=== PATIENT | male | born 1960 | race Two or more races ===

== ENCOUNTER 2016-12-05 21:28 | Inpatient (IN) | payer MEDICAID ==
[2016-12-04] MEDS: MIDAZOLAM DRIP 100 mg/100mL NS 100 ML IV SCH (21:50)
[~2016-12-05] VITALS: Ht 177.8 cm; Wt 174.0 kg
[2016-12-05] MEDS ORDERED: SUCCINYLCHOLINE CHLORIDE 20 MG/ML 10ML VIAL IV ONE (21:36)
[2016-12-05] MEDS ORDERED: MIDAZOLAM DRIP 100 mg/100mL NS 100 ML IV ONE (21:42)
[2016-12-05] MEDS: MIDAZOLAM DRIP 100 mg/100mL NS 100 ML IV SCH (21:50)
[2016-12-05] MEDS ORDERED: PROPOFOL 100 ML IV ONE (22:01)
[2016-12-05 22:15] VITALS: BP 73/58
[2016-12-05] MEDS ORDERED: SODIUM CHLORIDE 0.9% 1,000 ML IV ONE (22:45)
[2016-12-05] MEDS ORDERED: SODIUM CHLORIDE 0.9% 250 ML IV ONE (22:45)
[2016-12-05 23:03] LABS: Hematocrit 47.7 % (41.0-53.0); Mean Corpuscular Hemoglobin 30.6 pg (28.0-32.0); Mean Corpuscular Hgb Conc. 31.5 g/dL (32.0-36.0); Mean Corpuscular Volume 97.2 fL (80.0-100.0); Mean Platelet Volume 7.8 fL (7.4-10.4); Platelet Count (auto) 420 10^3/uL (140-450); Red Cell Distribution Width 15.6 % (11.6-16.0); SUSPECT VIEW TRANSMISSION; White Blood Cell 22.8 10^3/uL (4.4-10.8)
[2016-12-05] MEDS ORDERED: NOREPINEPHRINE BITARTRATE 250 ML IV ONE (23:12)
[2016-12-05 23:19] LABS: Myelocytes % 0; Promyelocytes % 0; Reactive Lymphocytes 0
[2016-12-05 23:22] LABS: Partial Thromboplastin Time 27.8 sec (22.64-33.71)
[2016-12-05 23:27] LABS: INR 1.39 (0.9-1.15); Prothrombin Time 14.3 sec (9.37-12.3)
[2016-12-05] MEDS ORDERED: NOREPINEPHRINE BITARTRATE 250 ML IV SCH (23:30)
[2016-12-05] MEDS ORDERED: ENOXAPARIN SOD 150 MG/1 ML SYRINGE SC ONE (23:30)
[2016-12-05 23:31] LABS: Metamyelocytes % 1
[2016-12-05 23:32] LABS: Platelet Estimate Adequate
[2016-12-06] VITALS (55 sets, daily range): BP systolic 99–136; BP diastolic 50–77
[2016-12-06 00:25] LABS: Lactic Acid w/Reflex 2.4 mmol/L (0.4-2.0)
[2016-12-06 00:37] LABS: BUN/Creatinine Ratio 18.6
[2016-12-06 00:38] LABS: Albumin 2.6 g/dL (3.4-5.0); Bilirubin, Total 1.7 mg/dL (0.2-1.0); Potassium 5.3 mmol/L (3.5-5.1); Total Protein 7.2 g/dL (6.4-8.2)
[2016-12-06 00:56] LABS: REFLEX LACTIC ACID YES OR NO YES
[2016-12-06] MEDS ORDERED: cefTRIAXone 1GM/50ML D5W 50 ML IV ONE ×2 (01:47→02:00)
[2016-12-06] MEDS ORDERED: SUCCINYLCHOLINE CHLORIDE 20 MG/ML 10ML VIAL IV ONE ×2 (02:45)
[2016-12-06] MEDS ORDERED: ACETAMINOPHEN 650 MG RECT SUPP PR ONE (02:45)
[2016-12-06] MEDS ORDERED: ETOMIDATE (2MG/ML) 20ML VIAL IV ONE (02:45)
[2016-12-06] MEDS ORDERED: ACETAMINOPHEN 650 mg PER 20 mL UD ONE (03:12)
[2016-12-06] MEDS ORDERED: ACETAMINOPHEN 650 mg PER 20 mL UD GT ONE ×2 (04:15→10:00)
[2016-12-06] MEDS ORDERED: PROPOFOL 100 ML IV SCH (04:15)
[2016-12-06] MEDS ORDERED: SODIUM CHLORIDE 0.9% 1,000 ML IV ONE ×3 (04:15→08:45)
[2016-12-06] MEDS: MIDAZOLAM DRIP 100 mg/100mL NS 100 ML IV SCH ×3 (04:36→23:49)
[2016-12-06 08:59] LABS: Albumin 1.7 g/dL (3.4-5.0); BUN/Creatinine Ratio 24.6; Potassium 3.5 mmol/L (3.5-5.1)
[2016-12-06 09:02] LABS: Bilirubin, Total 0.8 mg/dL (0.2-1.0); Total Protein 4.7 g/dL (6.4-8.2)
[2016-12-06 09:07] LABS: Basophils # (auto) 0 uL; Basophils % (auto) 0.3 % (0.0-2.0); Eosinophils # (auto) 0 uL; Eosinophils % (auto) 0.1 % (0.0-7.0); Hematocrit 34.9 % (41.0-53.0); Hemoglobin 11.1 g/dL (13.5-17.5); Lymphocytes # (auto) 1.9 uL; Lymphocytes % (auto) 10.6 % (10.0-50.0); Mean Corpuscular Hemoglobin 30.6 pg (28.0-32.0); Mean Corpuscular Hgb Conc. 31.7 g/dL (32.0-36.0); Mean Corpuscular Volume 96.5 fL (80.0-100.0); Mean Platelet Volume 7.8 fL (7.4-10.4); Monocytes # (auto) 0.8 uL; Monocytes % (auto) 4.6 % (0.0-12.0); Neutrophils # (auto) 15.5 uL; Neutrophils % (auto) 84.4 % (37.0-80.0); Platelet Count (auto) 360 10^3/uL (140-450); Red Cell Distribution Width 15.9 % (11.6-16.0); White Blood Cell 18.4 10^3/uL (4.4-10.8)
[2016-12-06 09:15] LABS: Calcium 5.3 mg/dL (8.5-10.1)
[2016-12-06 09:35] LABS: Urine Mucus FEW (None Seen); Urine RBC 1533 /hpf (0 - 3); Urine Squamous Epithelial Cell FEW /hpf (<5); Urine WBC Clumps PRESENT /hpf (None Seen)
[2016-12-06 09:42] LABS: Urine Blood 3+ /uL (Negative); Urine Color Amber (Yellow); Urine Glucose Normal (Normal); Urine Ketone 1+ (Negative); Urine Nitrite 1+ (Negative); Urine Urobilinogen 2 mg/dL (Negative); Urine pH 5.5 (5.0-8.0)
[2016-12-06] MEDS ORDERED: CALCIUM GLUC 4.65 MEQ/10ML IV ONE (09:44)
[2016-12-06 09:48] LABS: Urine Bilirubin Negative (Negative)
[2016-12-06] MEDS: PROPOFOL 100 ML IV SCH (09:59)
[2016-12-06] MEDS ORDERED: ACETAMINOPHEN 650 MG RECT SUPP PR PRN (10:00)
[2016-12-06] MEDS ORDERED: VANCOMYCIN PER PHARMACY 0 MG IV SCH (10:00)
[2016-12-06] MEDS ORDERED: DEXTROSE (50%) 50ML SYRG IV PRN (10:00)
[2016-12-06] MEDS ORDERED: FAMOTIDINE (10MG/ML) 2ML VL IV ONE (10:15)
[2016-12-06] MEDS ORDERED: ONDANSETRON HCL 4 MG/2 ML VIAL IV PRN (10:15)
[2016-12-06] MEDS ORDERED: NITROGLYCERIN 0.4 MG SL TAB SL PRN (10:15)
[2016-12-06] MEDS ORDERED: MORPHINE SULF INJ 2 MG/ML SYRINGE 1ML IV PRN ×2 (10:15)
[2016-12-06] MEDS ORDERED: CALCIUM GLUC 4.65 MEQ/10ML 4.65 MEQ in SODIUM CHL 0.9% 50 ML IV ONE (10:15)
[2016-12-06] MEDS ORDERED: ENOXAPARIN SOD 40 MG/0.4 ML SYRINGE SC SCH ×2 (10:17→22:00)
[2016-12-06] MEDS: NOREPINEPHRINE BITARTRATE 250 ML IV SCH ×2 (10:17→20:00)
[2016-12-06] MEDS: SODIUM CHLORIDE 0.9% 1,000 ML IV SCH ×2 (10:22→20:03)
[2016-12-06] MEDS: InsuLIN REG 1unit/0.01ml Soln (100units/ml) SC SCH ×2 (12:00→18:00)
[2016-12-06] MEDS: ACCU-CHEK COMFORT CURVE STRIP VI SCH ×2 (12:16→18:00)
[2016-12-06] MEDS: VANCOMYCIN 1,500 MG in D5W 5% 250 ML IV SCH ×2 (12:16→23:51)
[2016-12-06] MEDS: NYSTATIN TOPICAL CREAM 15GM TOP SCH ×2 (12:30→22:14)
[2016-12-06] MEDS ORDERED: ALB5IS NEB (13:32)
[2016-12-06] MEDS ORDERED: INSUINJ37 SUBCUT (13:32)
[2016-12-06] MEDS ORDERED: TRAV0.00 EACHEYE (13:32)
[2016-12-06] MEDS ORDERED: GLY5T PO (13:32)
[2016-12-06] MEDS ORDERED: BENA20TA4 PO (13:32)
[2016-12-06] MEDS ORDERED: NOR5T PO (13:32)
[2016-12-06] MEDS ORDERED: ASPirin 81 mg TAB PO ONE (16:00)
[2016-12-06 17:43] LABS: INR 1.43 (0.9-1.15); Prothrombin Time 14.7 sec (9.37-12.3)
[2016-12-06] MEDS ORDERED: NOREPINEPHRINE BITARTRATE 250 ML IV ONE (18:36)
[2016-12-06] MEDS: HEPARIN DRIP/D5W 100UNITS/ML 250 ML IV SCH (18:52)
[2016-12-06 20:43] LABS: BUN/Creatinine Ratio 24.8; Calcium 7.9 mg/dL (8.5-10.1); Potassium 4.2 mmol/L (3.5-5.1)
[2016-12-06] MEDS: FAMOTIDINE (10MG/ML) 2ML VL IV SCH (22:05)
[2016-12-07] VITALS (90 sets, daily range): BP systolic 97–151; BP diastolic 46–103
[2016-12-07] MEDS: ACCU-CHEK COMFORT CURVE STRIP VI SCH ×5 (00:06→23:57)
[2016-12-07] MEDS: PROPOFOL 100 ML IV SCH ×3 (00:07→21:56)
[2016-12-07 01:44] LABS: Partial Thromboplastin Time 45.5 sec (22.64-33.71)
[2016-12-07 03:01] LABS: INR 1.49 (0.9-1.15); Prothrombin Time 15.3 sec (9.37-12.3)
[2016-12-07] MEDS: InsuLIN REG 1unit/0.01ml Soln (100units/ml) SC SCH ×5 (05:54→23:57)
[2016-12-07] MEDS: HEPARIN DRIP/D5W 100UNITS/ML 250 ML IV SCH ×2 (06:49→16:59)
[2016-12-07] MEDS: MIDAZOLAM DRIP 100 mg/100mL NS 100 ML IV SCH ×3 (06:49→20:13)
[2016-12-07 06:54] LABS: Basophils # (auto) 0.1 uL; Basophils % (auto) 0.5 % (0.0-2.0); Eosinophils # (auto) 0.2 uL; Eosinophils % (auto) 0.9 % (0.0-7.0); Hematocrit 45.2 % (41.0-53.0); Hemoglobin 14.6 g/dL (13.5-17.5); Lymphocytes # (auto) 2.4 uL; Lymphocytes % (auto) 10.9 % (10.0-50.0); Mean Corpuscular Hgb Conc. 32.3 g/dL (32.0-36.0); Mean Corpuscular Volume 95.9 fL (80.0-100.0); Mean Platelet Volume 7.7 fL (7.4-10.4); Monocytes # (auto) 1.1 uL; Neutrophils # (auto) 18.4 uL; Neutrophils % (auto) 82.7 % (37.0-80.0); Platelet Count (auto) 394 10^3/uL (140-450); Red Cell Distribution Width 15.5 % (11.6-16.0); White Blood Cell 22.2 10^3/uL (4.4-10.8)
[2016-12-07 07:09] LABS: Partial Thromboplastin Time 42.2 sec (22.64-33.71)
[2016-12-07 07:20] LABS: INR 1.45 (0.9-1.15); Prothrombin Time 14.9 sec (9.37-12.3)
[2016-12-07 08:09] LABS: Albumin 2.3 g/dL (3.4-5.0); BUN/Creatinine Ratio 20.3; Calcium 7.8 mg/dL (8.5-10.1)
[2016-12-07 08:25] LABS: Bilirubin, Total 1.6 mg/dL (0.2-1.0); Total Protein 6.8 g/dL (6.4-8.2)
[2016-12-07] MEDS: FAMOTIDINE (10MG/ML) 2ML VL IV SCH (11:08)
[2016-12-07] MEDS: cefTRIAXone 1GM/50ML D5W 50 ML IV SCH (11:08)
[2016-12-07] MEDS: VANCOMYCIN 1,500 MG in D5W 5% 250 ML IV SCH (11:09)
[2016-12-07] MEDS: ASPirin 81 mg TAB PO SCH (11:09)
[2016-12-07] MEDS: SODIUM CHLORIDE 0.9% 1,000 ML IV SCH ×3 (11:10→22:00)
[2016-12-07] MEDS: NYSTATIN TOPICAL CREAM 15GM TOP SCH ×2 (11:11→21:57)
[2016-12-07 14:03] LABS: INR 1.47 (0.9-1.15); Prothrombin Time 15.1 sec (9.37-12.3)
[2016-12-07 18:09] LABS: Amylase 64 U/L (25-115)
[2016-12-07] MEDS: LINEZOLID 600MG/300ML 300 ML IV SCH (18:28)
[2016-12-07] MEDS ORDERED: PANTOPRAZOLE SODIUM 40 MG/10 ML VIAL IV ONE (18:45)
[2016-12-07 21:20] LABS: Partial Thromboplastin Time 63.6 sec (22.64-33.71)
[2016-12-07 21:26] LABS: INR 1.43 (0.9-1.15); Prothrombin Time 14.7 sec (9.37-12.3)
[2016-12-07 21:31] LABS: B-Type Natriuretic Peptide 71.23 pg/mL (0-100)
[2016-12-07 22:03] LABS: Temperature: 22.9 C (20.0-25.0)
[2016-12-07] MEDS: NOREPINEPHRINE BITARTRATE 250 ML IV SCH (23:52)
[2016-12-08] VITALS (102 sets, daily range): BP systolic 94–143; BP diastolic 46–96
[2016-12-08] MEDS: MIDAZOLAM DRIP 100 mg/100mL NS 100 ML IV SCH ×2 (01:44→09:03)
[2016-12-08] MEDS: HEPARIN DRIP/D5W 100UNITS/ML 250 ML IV SCH ×3 (01:47→17:29)
[2016-12-08] MEDS: LINEZOLID 600MG/300ML 300 ML IV SCH ×2 (05:00→18:00)
[2016-12-08] MEDS: InsuLIN REG 1unit/0.01ml Soln (100units/ml) SC SCH ×3 (06:00→17:52)
[2016-12-08] MEDS: PROPOFOL 100 ML IV SCH ×3 (06:07→21:00)
[2016-12-08] MEDS: ACCU-CHEK COMFORT CURVE STRIP VI SCH ×3 (06:08→17:52)
[2016-12-08 08:12] LABS: Basophils # (auto) 0.1 uL; Basophils % (auto) 0.8 % (0.0-2.0); Eosinophils # (auto) 0.4 uL; Eosinophils % (auto) 1.8 % (0.0-7.0); Hematocrit 43.8 % (41.0-53.0); Lymphocytes # (auto) 1.8 uL; Lymphocytes % (auto) 9.2 % (10.0-50.0); Mean Corpuscular Hemoglobin 30.6 pg (28.0-32.0); Mean Corpuscular Hgb Conc. 31.9 g/dL (32.0-36.0); Mean Platelet Volume 7.7 fL (7.4-10.4); Monocytes # (auto) 0.9 uL; Monocytes % (auto) 4.7 % (0.0-12.0); Neutrophils # (auto) 15.8 uL; Neutrophils % (auto) 83.5 % (37.0-80.0); Platelet Count (auto) 376 10^3/uL (140-450); Red Cell Distribution Width 15.9 % (11.6-16.0)
[2016-12-08 08:20] LABS: Calcium 7.8 mg/dL (8.5-10.1); Potassium 4.1 mmol/L (3.5-5.1)
[2016-12-08] MEDS: SODIUM CHLORIDE 0.9% 1,000 ML IV SCH ×3 (09:00→22:24)
[2016-12-08 09:33] LABS: Partial Thromboplastin Time 68.8 sec (22.64-33.71)
[2016-12-08 09:47] LABS: INR 1.38 (0.9-1.15); Prothrombin Time 14.2 sec (9.37-12.3)
[2016-12-08] MEDS: PANTOPRAZOLE SODIUM 40 MG/10 ML VIAL IV SCH (09:59)
[2016-12-08] MEDS: cefTRIAXone 1GM/50ML D5W 50 ML IV SCH (09:59)
[2016-12-08] MEDS: NYSTATIN TOPICAL CREAM 15GM TOP SCH ×2 (10:00→22:23)
[2016-12-08] MEDS: ASPirin 81 mg TAB PO SCH (10:00)
[2016-12-08 19:25] LABS: Partial Thromboplastin Time 64.7 sec (22.64-33.71)
[2016-12-08 20:03] LABS: INR 1.3 (0.9-1.15); Prothrombin Time 13.4 sec (9.37-12.3)
[2016-12-09] VITALS (96 sets, daily range): BP systolic 84–140; BP diastolic 47–92
[2016-12-09] MEDS: ACCU-CHEK COMFORT CURVE STRIP VI SCH ×4 (00:15→17:21)
[2016-12-09] MEDS: PROPOFOL 100 ML IV SCH (01:38)
[2016-12-09] MEDS: HEPARIN DRIP/D5W 100UNITS/ML 250 ML IV SCH ×3 (03:06→22:20)
[2016-12-09 04:03] LABS: Basophils # (auto) 0.1 uL; Basophils % (auto) 0.4 % (0.0-2.0); Eosinophils # (auto) 0.4 uL; Eosinophils % (auto) 2.8 % (0.0-7.0); Hematocrit 41.5 % (41.0-53.0); Hemoglobin 13.2 g/dL (13.5-17.5); Lymphocytes # (auto) 1.5 uL; Lymphocytes % (auto) 10.1 % (10.0-50.0); Mean Corpuscular Hemoglobin 30.8 pg (28.0-32.0); Mean Corpuscular Hgb Conc. 31.8 g/dL (32.0-36.0); Mean Corpuscular Volume 96.8 fL (80.0-100.0); Mean Platelet Volume 7.8 fL (7.4-10.4); Monocytes # (auto) 0.7 uL; Monocytes % (auto) 4.8 % (0.0-12.0); Neutrophils # (auto) 11.9 uL; Neutrophils % (auto) 81.9 % (37.0-80.0); Platelet Count (auto) 352 10^3/uL (140-450); Red Cell Distribution Width 16.1 % (11.6-16.0); White Blood Cell 14.5 10^3/uL (4.4-10.8)
[2016-12-09 04:13] LABS: Partial Thromboplastin Time 32.1 sec (22.64-33.71)
[2016-12-09 04:21] LABS: INR 1.27 (0.9-1.15); Prothrombin Time 13.1 sec (9.37-12.3)
[2016-12-09 04:27] LABS: Potassium 3.8 mmol/L (3.5-5.1)
[2016-12-09] MEDS: LINEZOLID 600MG/300ML 300 ML IV SCH ×2 (04:36→17:21)
[2016-12-09 04:41] LABS: BUN/Creatinine Ratio 12.2; Bilirubin, Total 1.1 mg/dL (0.2-1.0); Calcium 7.9 mg/dL (8.5-10.1); Total Protein 6.4 g/dL (6.4-8.2)
[2016-12-09] MEDS: InsuLIN REG 1unit/0.01ml Soln (100units/ml) SC SCH ×4 (06:00→17:21)
[2016-12-09] MEDS: NOREPINEPHRINE BITARTRATE 250 ML IV SCH (10:00)
[2016-12-09] MEDS: PANTOPRAZOLE SODIUM 40 MG/10 ML VIAL IV SCH (10:04)
[2016-12-09] MEDS: NYSTATIN TOPICAL CREAM 15GM TOP SCH ×2 (10:05→22:21)
[2016-12-09] MEDS: cefTRIAXone 1GM/50ML D5W 50 ML IV SCH (10:05)
[2016-12-09] MEDS: ASPirin 81 mg TAB PO SCH (10:05)
[2016-12-09] MEDS: SODIUM CHLORIDE 0.9% 1,000 ML IV SCH ×3 (10:05→23:52)
[2016-12-09] MEDS: LORazepam 2MG/ML-1ML VIAL IV PRN ×3 (11:49→18:48)
[2016-12-09] MEDS ORDERED: LIDOCAINE 1% HCL (LOCAL ANESTH.) INJ 20ML MDV ID ONE (14:30)
[2016-12-09] MEDS: Diabetisource AC 1 Liter GT SCH (16:30)
[2016-12-09] MEDS: SODIUM CHLOR 0.9% PF (SALINE LOCK) 10ML VIAL IV SCH (22:21)
[2016-12-10] VITALS (95 sets, daily range): BP systolic 72–141; BP diastolic 36–96
[2016-12-10] MEDS: ACCU-CHEK COMFORT CURVE STRIP VI SCH ×4 (00:09→17:40)
[2016-12-10 05:00] LABS: Basophils # (auto) 0 uL; Basophils % (auto) 0.4 % (0.0-2.0); Eosinophils # (auto) 0.4 uL; Eosinophils % (auto) 3.3 % (0.0-7.0); Hematocrit 41.5 % (41.0-53.0); Hemoglobin 13.1 g/dL (13.5-17.5); Lymphocytes # (auto) 1.7 uL; Lymphocytes % (auto) 14.6 % (10.0-50.0); Mean Corpuscular Hemoglobin 30.2 pg (28.0-32.0); Mean Corpuscular Hgb Conc. 31.6 g/dL (32.0-36.0); Mean Corpuscular Volume 95.5 fL (80.0-100.0); Mean Platelet Volume 7.6 fL (7.4-10.4); Monocytes % (auto) 8.9 % (0.0-12.0); Neutrophils # (auto) 8.5 uL; Neutrophils % (auto) 72.8 % (37.0-80.0); Platelet Count (auto) 316 10^3/uL (140-450); Red Cell Distribution Width 16.5 % (11.6-16.0); White Blood Cell 11.7 10^3/uL (4.4-10.8)
[2016-12-10] MEDS: LINEZOLID 600MG/300ML 300 ML IV SCH ×2 (05:04→16:39)
[2016-12-10 05:25] LABS: BUN/Creatinine Ratio 9.5; Calcium 8.1 mg/dL (8.5-10.1); Potassium 4.9 mmol/L (3.5-5.1)
[2016-12-10] MEDS: InsuLIN REG 1unit/0.01ml Soln (100units/ml) SC SCH ×3 (06:00→12:00)
[2016-12-10] MEDS ORDERED: ALBUMIN 5% 250 ML IV ONE ×2 (07:45→08:30)
[2016-12-10] MEDS: HEPARIN DRIP/D5W 100UNITS/ML 250 ML IV SCH ×2 (07:54→17:34)
[2016-12-10] MEDS: cefTRIAXone 1GM/50ML D5W 50 ML IV SCH (08:33)
[2016-12-10] MEDS: SODIUM CHLOR 0.9% PF (SALINE LOCK) 10ML VIAL IV SCH ×2 (10:15→22:13)
[2016-12-10] MEDS: PANTOPRAZOLE SODIUM 40 MG/10 ML VIAL IV SCH (10:15)
[2016-12-10] MEDS: NOREPINEPHRINE BITARTRATE 250 ML IV SCH (10:15)
[2016-12-10] MEDS: NYSTATIN TOPICAL CREAM 15GM TOP SCH ×2 (10:16→22:13)
[2016-12-10] MEDS: ASPirin 81 mg TAB PO SCH (10:16)
[2016-12-10] MEDS: SODIUM CHLORIDE 0.9% 1,000 ML IV SCH ×2 (13:45→22:59)
[2016-12-10] MEDS: Diabetisource AC 1 Liter GT SCH (20:00)
[2016-12-10] MEDS: LORazepam 2MG/ML-1ML VIAL IV PRN (23:07)
[2016-12-11] VITALS (101 sets, daily range): BP systolic 69–135; BP diastolic 33–88
[2016-12-11] MEDS: LORazepam 2MG/ML-1ML VIAL IV PRN ×4 (00:10→19:16)
[2016-12-11] MEDS: ACCU-CHEK COMFORT CURVE STRIP VI SCH ×4 (00:11→18:14)
[2016-12-11] MEDS: LINEZOLID 600MG/300ML 300 ML IV SCH ×2 (05:33→16:19)
[2016-12-11] MEDS: HEPARIN DRIP/D5W 100UNITS/ML 250 ML IV SCH ×3 (05:33→22:25)
[2016-12-11] MEDS: InsuLIN REG 1unit/0.01ml Soln (100units/ml) SC SCH ×4 (05:53→18:00)
[2016-12-11 06:11] LABS: Basophils # (auto) 0 uL; Basophils % (auto) 0.1 % (0.0-2.0); Eosinophils # (auto) 0.3 uL; Eosinophils % (auto) 3.1 % (0.0-7.0); Hematocrit 40.4 % (41.0-53.0); Hemoglobin 12.8 g/dL (13.5-17.5); Lymphocytes # (auto) 1.1 uL; Lymphocytes % (auto) 10.2 % (10.0-50.0); Mean Corpuscular Hemoglobin 29.9 pg (28.0-32.0); Mean Corpuscular Hgb Conc. 31.6 g/dL (32.0-36.0); Mean Corpuscular Volume 94.6 fL (80.0-100.0); Mean Platelet Volume 7.4 fL (7.4-10.4); Monocytes # (auto) 0.9 uL; Monocytes % (auto) 8.8 % (0.0-12.0); Neutrophils # (auto) 8.3 uL; Neutrophils % (auto) 77.8 % (37.0-80.0); Platelet Count (auto) 322 10^3/uL (140-450); Red Cell Distribution Width 16.1 % (11.6-16.0); White Blood Cell 10.7 10^3/uL (4.4-10.8)
[2016-12-11 06:39] LABS: Albumin 2.4 g/dL (3.4-5.0); BUN/Creatinine Ratio 8.5; Calcium 8.3 mg/dL (8.5-10.1); Potassium 4.7 mmol/L (3.5-5.1)
[2016-12-11 06:42] LABS: Bilirubin, Total 0.9 mg/dL (0.2-1.0); Total Protein 6.9 g/dL (6.4-8.2)
[2016-12-11] MEDS: cefTRIAXone 1GM/50ML D5W 50 ML IV SCH (09:39)
[2016-12-11] MEDS: SODIUM CHLOR 0.9% PF (SALINE LOCK) 10ML VIAL IV SCH ×2 (09:40→22:00)
[2016-12-11] MEDS: ASPirin 81 mg TAB PO SCH (09:40)
[2016-12-11] MEDS: NYSTATIN TOPICAL CREAM 15GM TOP SCH ×2 (09:40→22:00)
[2016-12-11] MEDS: PANTOPRAZOLE SODIUM 40 MG/10 ML VIAL IV SCH (09:40)
[2016-12-11] MEDS: NOREPINEPHRINE BITARTRATE 250 ML IV SCH (10:00)
[2016-12-11] MEDS: SODIUM CHLORIDE 0.9% 1,000 ML IV SCH (10:03)
[2016-12-11] MEDS ORDERED: BISACODYL 10 MG RECT SUPP PR ONE ×2 (12:30→18:30)
[2016-12-11] MEDS ORDERED: FUROSEMIDE 40 MG/4 ML VIAL IV ONE (12:30)
[2016-12-11] MEDS ORDERED: FUROSEMIDE 20 MG/2 ML VIAL IV ONE (15:30)
[2016-12-11] MEDS ORDERED: BENAZEPRIL HCL 10 MG TAB PO ONE (15:30)
[2016-12-11] MEDS: METOPROLOL TARTRATE 1MG/1ML-5ML VIAL IV SCH (17:55)
[2016-12-11] MEDS: fentaNYL Drip 2500mCg/250mlNS 250 ML IV SCH (19:58)
[2016-12-12] VITALS (99 sets, daily range): BP systolic 94–158; BP diastolic 53–98
[2016-12-12] MEDS ORDERED: FUROSEMIDE 40 MG/4 ML VIAL IV ONE (01:00)
[2016-12-12] MEDS: ACCU-CHEK COMFORT CURVE STRIP VI SCH ×4 (01:04→17:45)
[2016-12-12] MEDS: InsuLIN REG 1unit/0.01ml Soln (100units/ml) SC SCH ×4 (01:04→17:45)
[2016-12-12] MEDS: SODIUM CHLORIDE 0.9% 1,000 ML IV SCH ×3 (01:06→16:03)
[2016-12-12 03:52] LABS: Basophils # (auto) 0 uL; Basophils % (auto) 0.4 % (0.0-2.0); Eosinophils # (auto) 0.4 uL; Eosinophils % (auto) 3.5 % (0.0-7.0); Hemoglobin 12.7 g/dL (13.5-17.5); Lymphocytes # (auto) 1.4 uL; Lymphocytes % (auto) 11.8 % (10.0-50.0); Mean Corpuscular Hemoglobin 30.4 pg (28.0-32.0); Mean Corpuscular Hgb Conc. 31.9 g/dL (32.0-36.0); Mean Corpuscular Volume 95.4 fL (80.0-100.0); Mean Platelet Volume 7.7 fL (7.4-10.4); Monocytes # (auto) 0.7 uL; Monocytes % (auto) 6.1 % (0.0-12.0); Neutrophils % (auto) 78.2 % (37.0-80.0); Platelet Count (auto) 390 10^3/uL (140-450); Red Cell Distribution Width 16.3 % (11.6-16.0); White Blood Cell 11.6 10^3/uL (4.4-10.8)
[2016-12-12 04:04] LABS: BUN/Creatinine Ratio 12.2; Calcium 8.8 mg/dL (8.5-10.1); Potassium 4.3 mmol/L (3.5-5.1)
[2016-12-12] MEDS: LINEZOLID 600MG/300ML 300 ML IV SCH ×2 (04:50→17:07)
[2016-12-12] MEDS: METOPROLOL TARTRATE 1MG/1ML-5ML VIAL IV SCH ×4 (06:00→17:45)
[2016-12-12] MEDS: HEPARIN DRIP/D5W 100UNITS/ML 250 ML IV SCH ×2 (08:02→17:39)
[2016-12-12] MEDS: NOREPINEPHRINE BITARTRATE 250 ML IV SCH ×2 (10:00→18:53)
[2016-12-12] MEDS: SODIUM CHLOR 0.9% PF (SALINE LOCK) 10ML VIAL IV SCH ×2 (10:43→21:43)
[2016-12-12] MEDS: PANTOPRAZOLE SODIUM 40 MG/10 ML VIAL IV SCH (10:43)
[2016-12-12] MEDS: cefTRIAXone 1GM/50ML D5W 50 ML IV SCH (10:43)
[2016-12-12] MEDS: ASPirin 81 mg TAB PO SCH (10:43)
[2016-12-12] MEDS: NYSTATIN TOPICAL CREAM 15GM TOP SCH ×2 (10:44→21:44)
[2016-12-12] MEDS ORDERED: FUROSEMIDE 20 MG/2 ML VIAL IV ONE (13:30)
[2016-12-12] MEDS: LORazepam 2MG/ML-1ML VIAL IV PRN ×2 (19:17→23:20)
[2016-12-12] MEDS ORDERED: EPINEPHrine HCL 0.5 ML NEB ONE (19:50)
[2016-12-12] MEDS ORDERED: EPINEPHrine HCL 0.5 ML NEB NEB ONE (20:00)
[2016-12-12] MEDS: fentaNYL Drip 2500mCg/250mlNS 250 ML IV SCH (20:00)
[2016-12-13] VITALS (68 sets, daily range): BP systolic 110–202; BP diastolic 41–116
[2016-12-13] MEDS: METOPROLOL TARTRATE 1MG/1ML-5ML VIAL IV SCH ×4 (00:18→18:00)
[2016-12-13] MEDS: ACCU-CHEK COMFORT CURVE STRIP VI SCH ×4 (00:18→18:00)
[2016-12-13] MEDS: LORazepam 2MG/ML-1ML VIAL IV PRN ×4 (02:55→23:15)
[2016-12-13] MEDS: HEPARIN DRIP/D5W 100UNITS/ML 250 ML IV SCH (03:16)
[2016-12-13] MEDS: LINEZOLID 600MG/300ML 300 ML IV SCH ×2 (04:33→17:44)
[2016-12-13] MEDS: InsuLIN REG 1unit/0.01ml Soln (100units/ml) SC SCH ×4 (06:00→18:00)
[2016-12-13 06:44] LABS: Basophils # (auto) 0 uL; Basophils % (auto) 0.2 % (0.0-2.0); Eosinophils # (auto) 0.5 uL; Eosinophils % (auto) 3.2 % (0.0-7.0); Hematocrit 40.6 % (41.0-53.0); Hemoglobin 12.9 g/dL (13.5-17.5); Lymphocytes # (auto) 1.2 uL; Lymphocytes % (auto) 8.5 % (10.0-50.0); Mean Corpuscular Hemoglobin 30.2 pg (28.0-32.0); Mean Corpuscular Hgb Conc. 31.8 g/dL (32.0-36.0); Mean Corpuscular Volume 94.8 fL (80.0-100.0); Mean Platelet Volume 7.7 fL (7.4-10.4); Monocytes % (auto) 6.8 % (0.0-12.0); Neutrophils # (auto) 11.7 uL; Neutrophils % (auto) 81.3 % (37.0-80.0); Platelet Count (auto) 401 10^3/uL (140-450); Red Cell Distribution Width 16.1 % (11.6-16.0); White Blood Cell 14.3 10^3/uL (4.4-10.8)
[2016-12-13 07:05] LABS: BUN/Creatinine Ratio 14.7; Calcium 8.4 mg/dL (8.5-10.1); Potassium 4.7 mmol/L (3.5-5.1)
[2016-12-13] MEDS: cefTRIAXone 1GM/50ML D5W 50 ML IV SCH (08:38)
[2016-12-13] MEDS: NYSTATIN TOPICAL CREAM 15GM TOP SCH ×2 (09:30→23:11)
[2016-12-13] MEDS: ASPirin 81 mg TAB PO SCH (09:30)
[2016-12-13] MEDS: SODIUM CHLOR 0.9% PF (SALINE LOCK) 10ML VIAL IV SCH ×2 (09:30→22:00)
[2016-12-13] MEDS: PANTOPRAZOLE SODIUM 40 MG/10 ML VIAL IV SCH (09:30)
[2016-12-13] MEDS: ARMODAFINIL 150 MG TAB PO SCH (12:45)
[2016-12-14] VITALS (33 sets, daily range): BP systolic 108–182; BP diastolic 42–106
[2016-12-14] MEDS: LINEZOLID 600MG/300ML 300 ML IV SCH ×2 (05:17→16:44)
[2016-12-14] MEDS: InsuLIN REG 1unit/0.01ml Soln (100units/ml) SC SCH ×4 (05:18→17:57)
[2016-12-14] MEDS: ACCU-CHEK COMFORT CURVE STRIP VI SCH ×4 (05:21→17:57)
[2016-12-14 05:37] LABS: Basophils # (auto) 0.1 uL; Basophils % (auto) 0.4 % (0.0-2.0); Eosinophils # (auto) 0.3 uL; Hematocrit 39.4 % (41.0-53.0); Hemoglobin 12.7 g/dL (13.5-17.5); Lymphocytes # (auto) 1.2 uL; Mean Corpuscular Hemoglobin 30.5 pg (28.0-32.0); Mean Corpuscular Hgb Conc. 32.3 g/dL (32.0-36.0); Mean Corpuscular Volume 94.4 fL (80.0-100.0); Mean Platelet Volume 7.4 fL (7.4-10.4); Monocytes # (auto) 0.7 uL; Monocytes % (auto) 5.2 % (0.0-12.0); Neutrophils # (auto) 11.1 uL; Neutrophils % (auto) 83.4 % (37.0-80.0); Platelet Count (auto) 381 10^3/uL (140-450); Red Cell Distribution Width 15.9 % (11.6-16.0); White Blood Cell 13.3 10^3/uL (4.4-10.8)
[2016-12-14] MEDS: METOPROLOL TARTRATE 1MG/1ML-5ML VIAL IV SCH ×2 (05:39)
[2016-12-14 05:58] LABS: Albumin 2.4 g/dL (3.4-5.0); Calcium 8.8 mg/dL (8.5-10.1); Magnesium 1.8 mg/dL (1.6-2.6); Potassium 5.2 mmol/L (3.5-5.1); Total Protein 7.1 g/dL (6.4-8.2)
[2016-12-14 07:30] LABS: Bilirubin, Direct 0.2 mg/dL (0-0.2)
[2016-12-14] MEDS: ARMODAFINIL 150 MG TAB PO SCH (08:22)
[2016-12-14] MEDS: cefTRIAXone 1GM/50ML D5W 50 ML IV SCH (08:39)
[2016-12-14] MEDS ORDERED: MAGNESIUM SULFATE 1GM/100ML 100 ML IV ONE (09:30)
[2016-12-14] MEDS: METOPROLOL TARTRATE 25 MG TAB PO SCH ×2 (09:38→22:00)
[2016-12-14] MEDS: NYSTATIN TOPICAL CREAM 15GM TOP SCH ×2 (09:39→21:51)
[2016-12-14] MEDS: PANTOPRAZOLE SODIUM 40 MG/10 ML VIAL IV SCH (09:39)
[2016-12-14] MEDS: ASPirin 81 mg TAB PO SCH (09:39)
[2016-12-14] MEDS ORDERED: NUVIGIL 150 MG PO SCH (10:00)
[2016-12-14] MEDS: SODIUM CHLOR 0.9% PF (SALINE LOCK) 10ML VIAL IV SCH ×2 (10:00→22:00)
[2016-12-14] MEDS: MORPHINE SULF INJ 2 MG/ML SYRINGE 1ML IV PRN ×2 (17:50→21:51)
[2016-12-15] VITALS (24 sets, daily range): BP systolic 138–165; BP diastolic 75–109
[2016-12-15 03:51] LABS: Basophils # (auto) 0.3 uL; Basophils % (auto) 2.1 % (0.0-2.0); Eosinophils # (auto) 0.2 uL; Eosinophils % (auto) 1.9 % (0.0-7.0); Hematocrit 38.7 % (41.0-53.0); Hemoglobin 12.4 g/dL (13.5-17.5); Lymphocytes # (auto) 1.2 uL; Lymphocytes % (auto) 9.8 % (10.0-50.0); Mean Corpuscular Hemoglobin 30.3 pg (28.0-32.0); Mean Corpuscular Hgb Conc. 32.1 g/dL (32.0-36.0); Mean Corpuscular Volume 94.5 fL (80.0-100.0); Mean Platelet Volume 7.6 fL (7.4-10.4); Monocytes # (auto) 1.1 uL; Monocytes % (auto) 8.6 % (0.0-12.0); Neutrophils # (auto) 9.7 uL; Neutrophils % (auto) 77.6 % (37.0-80.0); Platelet Count (auto) 423 10^3/uL (140-450); White Blood Cell 12.4 10^3/uL (4.4-10.8)
[2016-12-15 04:10] LABS: Albumin 2.4 g/dL (3.4-5.0); Calcium 8.5 mg/dL (8.5-10.1); Magnesium 1.9 mg/dL (1.6-2.6); Potassium 4.5 mmol/L (3.5-5.1)
[2016-12-15 04:13] LABS: Total Protein 7.4 g/dL (6.4-8.2)
[2016-12-15] MEDS: LINEZOLID 600MG/300ML 300 ML IV SCH (05:00)
[2016-12-15] MEDS: InsuLIN REG 1unit/0.01ml Soln (100units/ml) SC SCH ×5 (06:00→23:32)
[2016-12-15] MEDS: ACCU-CHEK COMFORT CURVE STRIP VI SCH ×5 (06:08→23:32)
[2016-12-15] MEDS: SODIUM CHLOR 0.9% PF (SALINE LOCK) 10ML VIAL IV SCH ×2 (09:16→21:54)
[2016-12-15] MEDS: ARMODAFINIL 150 MG TAB PO SCH (09:17)
[2016-12-15] MEDS: cefTRIAXone 1GM/50ML D5W 50 ML IV SCH (09:17)
[2016-12-15] MEDS: PANTOPRAZOLE SODIUM 40 MG/10 ML VIAL IV SCH (09:28)
[2016-12-15] MEDS: METOPROLOL TARTRATE 25 MG TAB PO SCH (09:29)
[2016-12-15] MEDS: ASPirin 81 mg TAB PO SCH (09:29)
[2016-12-15] MEDS: NYSTATIN TOPICAL CREAM 15GM TOP SCH ×2 (09:29→21:56)
[2016-12-15 11:03] LABS: Hepatitis B Surface Antibody Negative
[2016-12-15] MEDS ORDERED: METOPROLOL TARTRATE 25 MG TAB PO ONE (11:30)
[2016-12-15] MEDS: LEVOFLOXACIN 500 MG TAB PO SCH (11:34)
[2016-12-15] MEDS: METOPROLOL TARTRATE 50 MG TAB PO SCH (21:55)
[2016-12-16 05:23] VITALS: BP 150/84
[2016-12-16] MEDS: ACCU-CHEK COMFORT CURVE STRIP VI SCH ×4 (05:31→23:58)
[2016-12-16] MEDS: InsuLIN REG 1unit/0.01ml Soln (100units/ml) SC SCH ×4 (05:31→23:58)
[2016-12-16] MEDS: ARMODAFINIL 150 MG TAB PO SCH (08:24)
[2016-12-16 09:00] VITALS: BP 147/87
[2016-12-16] MEDS: LEVOFLOXACIN 500 MG TAB PO SCH (09:44)
[2016-12-16] MEDS: ASPirin 81 mg TAB PO SCH (09:44)
[2016-12-16] MEDS: PANTOPRAZOLE SODIUM 40 MG/10 ML VIAL IV SCH (09:44)
[2016-12-16] MEDS: METOPROLOL TARTRATE 50 MG TAB PO SCH ×2 (09:46→21:46)
[2016-12-16] MEDS: SODIUM CHLOR 0.9% PF (SALINE LOCK) 10ML VIAL IV SCH ×2 (09:46→21:47)
[2016-12-16] MEDS: NYSTATIN TOPICAL CREAM 15GM TOP SCH ×2 (10:33→21:46)
[2016-12-16] MEDS ORDERED: MAGNESIUM SULFATE 1GM/100ML 100 ML IV ONE (12:45)
[2016-12-16] MEDS ORDERED: BENAZEPRIL HCL 10 MG TAB PO ONE (12:45)
[2016-12-16 13:00] VITALS: BP 154/89
[2016-12-16 17:00] VITALS: BP 124/82
[2016-12-16 22:19] VITALS: BP 151/86
[2016-12-17 05:02] VITALS: BP 124/73
[2016-12-17] MEDS: InsuLIN REG 1unit/0.01ml Soln (100units/ml) SC SCH ×4 (05:44→23:59)
[2016-12-17] MEDS: ACCU-CHEK COMFORT CURVE STRIP VI SCH ×4 (05:44→23:58)
[2016-12-17 05:50] LABS: Partial Thromboplastin Time 34.3 sec (22.64-33.71)
[2016-12-17 05:54] LABS: INR 1.32 (0.9-1.15); Prothrombin Time 13.6 sec (9.37-12.3)
[2016-12-17] MEDS ORDERED: ceFAZolin 1GM/50ML D5W 50 ML IV ONE (07:02)
[2016-12-17] MEDS: ARMODAFINIL 150 MG TAB PO SCH (08:47)
[2016-12-17 09:00] VITALS: BP 125/63
[2016-12-17] MEDS: PANTOPRAZOLE 40 MG TAB PO SCH (09:44)
[2016-12-17] MEDS: LEVOFLOXACIN 500 MG TAB PO SCH (09:44)
[2016-12-17] MEDS: SODIUM CHLOR 0.9% PF (SALINE LOCK) 10ML VIAL IV SCH ×2 (09:44→23:58)
[2016-12-17] MEDS: BENAZEPRIL HCL 10 MG TAB PO SCH (09:45)
[2016-12-17] MEDS: METOPROLOL TARTRATE 50 MG TAB PO SCH ×2 (09:45→22:14)
[2016-12-17] MEDS: ASPirin 81 mg TAB PO SCH (09:45)
[2016-12-17] MEDS: NYSTATIN TOPICAL CREAM 15GM TOP SCH ×2 (12:08→22:14)
[2016-12-17 13:00] VITALS: BP 104/70
[2016-12-17 16:56] VITALS: BP 141/79
[2016-12-17 21:44] VITALS: BP 155/84
[2016-12-18 04:48] VITALS: BP 150/84
[2016-12-18] MEDS: InsuLIN REG 1unit/0.01ml Soln (100units/ml) SC SCH ×3 (05:29→18:00)
[2016-12-18] MEDS: ACCU-CHEK COMFORT CURVE STRIP VI SCH ×3 (05:30→18:09)
[2016-12-18 06:13] LABS: BUN/Creatinine Ratio 19.7; Calcium 8.7 mg/dL (8.5-10.1); Magnesium 1.9 mg/dL (1.6-2.6)
[2016-12-18 06:18] LABS: Basophils # (auto) 0.2 uL; Basophils % (auto) 1.5 % (0.0-2.0); Eosinophils # (auto) 0.3 uL; Eosinophils % (auto) 2.6 % (0.0-7.0); Hematocrit 41.1 % (41.0-53.0); Hemoglobin 13.4 g/dL (13.5-17.5); Lymphocytes # (auto) 1.5 uL; Lymphocytes % (auto) 12.3 % (10.0-50.0); Mean Corpuscular Hemoglobin 30.2 pg (28.0-32.0); Mean Corpuscular Hgb Conc. 32.5 g/dL (32.0-36.0); Mean Corpuscular Volume 92.7 fL (80.0-100.0); Monocytes # (auto) 0.9 uL; Monocytes % (auto) 7.1 % (0.0-12.0); Neutrophils # (auto) 9.2 uL; Neutrophils % (auto) 76.5 % (37.0-80.0); Platelet Count (auto) 447 10^3/uL (140-450); Red Cell Distribution Width 15.6 % (11.6-16.0); White Blood Cell 12.1 10^3/uL (4.4-10.8)
[2016-12-18] MEDS: ARMODAFINIL 150 MG TAB PO SCH (08:03)
[2016-12-18 09:00] VITALS: BP 155/91
[2016-12-18] MEDS: METOPROLOL TARTRATE 50 MG TAB PO SCH ×2 (09:35→23:01)
[2016-12-18] MEDS: LEVOFLOXACIN 500 MG TAB PO SCH (09:35)
[2016-12-18] MEDS: PANTOPRAZOLE 40 MG TAB PO SCH (09:35)
[2016-12-18] MEDS: ASPirin 81 mg TAB PO SCH (09:36)
[2016-12-18] MEDS: SODIUM CHLOR 0.9% PF (SALINE LOCK) 10ML VIAL IV SCH (09:36)
[2016-12-18] MEDS: BENAZEPRIL HCL 10 MG TAB PO SCH (09:36)
[2016-12-18] MEDS: NYSTATIN TOPICAL CREAM 15GM TOP SCH ×2 (09:37→22:00)
[2016-12-18] MEDS ORDERED: LORazepam 2MG/ML-1ML VIAL IV PRN (10:15)
[2016-12-18] MEDS ORDERED: DEXTROSE (50%) 50ML SYRG IV PRN (10:15)
[2016-12-18] MEDS ORDERED: MAGNESIUM OXIDE 400 MG TAB PO ONE (10:15)
[2016-12-18 13:00] VITALS: BP 120/66
[2016-12-18 17:00] VITALS: BP 139/80
[2016-12-18 21:25] VITALS: BP 139/80
[2016-12-18 22:00] VITALS: BP 156/99
[2016-12-18] MEDS: INSULIN DETEMIR(LEVEMIR) 1unit/0.01ml Soln (100units/ml) SC SCH (22:00)
[2016-12-19 04:50] VITALS: BP 107/69
[2016-12-19] MEDS: METOPROLOL TARTRATE 50 MG TAB PO SCH ×2 (05:00→22:02)
[2016-12-19] MEDS: ACCU-CHEK COMFORT CURVE STRIP VI SCH ×4 (06:00→18:21)
[2016-12-19] MEDS: InsuLIN REG 1unit/0.01ml Soln (100units/ml) SC SCH ×4 (06:00→18:00)
[2016-12-19 08:00] VITALS: BP 125/81
[2016-12-19] MEDS: SODIUM CHLOR 0.9% PF (SALINE LOCK) 10ML VIAL IV SCH ×3 (08:13→21:59)
[2016-12-19] MEDS: LEVOFLOXACIN 500 MG TAB PO SCH (09:54)
[2016-12-19] MEDS: NYSTATIN TOPICAL CREAM 15GM TOP SCH ×2 (09:54→22:00)
[2016-12-19] MEDS: ARMODAFINIL 150 MG TAB PO SCH (09:54)
[2016-12-19] MEDS: BENAZEPRIL HCL 10 MG TAB PO SCH (09:56)
[2016-12-19] MEDS: PANTOPRAZOLE 40 MG TAB PO SCH (10:00)
[2016-12-19] MEDS: ASPirin 81 mg TAB PO SCH (10:00)
[2016-12-19 13:00] VITALS: BP 110/63
[2016-12-19 17:00] VITALS: BP 146/70
[2016-12-19 21:00] VITALS: BP 135/76
[2016-12-19] MEDS: INSULIN DETEMIR(LEVEMIR) 1unit/0.01ml Soln (100units/ml) SC SCH (22:00)
[2016-12-20] MEDS: ACCU-CHEK COMFORT CURVE STRIP VI SCH ×4 (00:32→18:23)
[2016-12-20 05:00] VITALS: BP 115/58
[2016-12-20] MEDS: InsuLIN REG 1unit/0.01ml Soln (100units/ml) SC SCH ×4 (06:00→18:23)
[2016-12-20 06:38] LABS: Basophils # (auto) 0 uL; Basophils % (auto) 0.3 % (0.0-2.0); Eosinophils # (auto) 0.5 uL; Hematocrit 41.4 % (41.0-53.0); Hemoglobin 13.4 g/dL (13.5-17.5); Lymphocytes # (auto) 1.7 uL; Lymphocytes % (auto) 17.6 % (10.0-50.0); Mean Corpuscular Hemoglobin 30.1 pg (28.0-32.0); Mean Corpuscular Hgb Conc. 32.3 g/dL (32.0-36.0); Mean Corpuscular Volume 93.3 fL (80.0-100.0); Mean Platelet Volume 7.7 fL (7.4-10.4); Monocytes # (auto) 0.8 uL; Monocytes % (auto) 8.1 % (0.0-12.0); Neutrophils # (auto) 6.8 uL; Platelet Count (auto) 564 10^3/uL (140-450); Red Cell Distribution Width 15.9 % (11.6-16.0); White Blood Cell 9.8 10^3/uL (4.4-10.8)
[2016-12-20 06:55] LABS: Albumin 2.6 g/dL (3.4-5.0); Bilirubin, Total 0.8 mg/dL (0.2-1.0); Calcium 8.9 mg/dL (8.5-10.1); Magnesium 1.9 mg/dL (1.6-2.6); Potassium 4.1 mmol/L (3.5-5.1); Total Protein 7.8 g/dL (6.4-8.2)
[2016-12-20 06:56] LABS: INR 1.36 (0.9-1.15)
[2016-12-20] MEDS ORDERED: KETOROLAC TROMETH 60MG/2ML VIAL IM ONE (07:59)
[2016-12-20] MEDS ORDERED: ONDANSETRON HCL 4 MG/2 ML VIAL ONE (07:59)
[2016-12-20] MEDS ORDERED: DEXAMETHASONE SOD PHOS 10MG/1ML VIAL INJ ONE (07:59)
[2016-12-20] MEDS ORDERED: fentaNYL CITRATE 100 MCG/2 ML VL ONE (07:59)
[2016-12-20] MEDS ORDERED: ONDANSETRON HCL 4 MG/2 ML VIAL IV ONE (09:00)
[2016-12-20] MEDS ORDERED: HYDROmorphone HCL 2 MG/ML VL IV PRN (09:00)
[2016-12-20 10:00] VITALS: BP 100/49
[2016-12-20] MEDS: ASPirin 81 mg TAB PO SCH (10:00)
[2016-12-20] MEDS: ARMODAFINIL 150 MG TAB PO SCH (11:30)
[2016-12-20] MEDS: METOPROLOL TARTRATE 50 MG TAB PO SCH ×2 (11:31→21:54)
[2016-12-20] MEDS: BENAZEPRIL HCL 10 MG TAB PO SCH (11:31)
[2016-12-20] MEDS: LEVOFLOXACIN 500 MG TAB PO SCH (11:31)
[2016-12-20] MEDS: PANTOPRAZOLE 40 MG TAB PO SCH (11:32)
[2016-12-20] MEDS: SODIUM CHLOR 0.9% PF (SALINE LOCK) 10ML VIAL IV SCH ×2 (11:32→21:53)
[2016-12-20] MEDS: NYSTATIN TOPICAL CREAM 15GM TOP SCH ×3 (11:33→22:00)
[2016-12-20 13:00] VITALS: BP 117/66
[2016-12-20] MEDS ORDERED: MORPHINE SULF INJ 2 MG/ML SYRINGE 1ML IV PRN (14:30)
[2016-12-20] MEDS ORDERED: ONDANSETRON HCL 4 MG/2 ML VIAL IV PRN (14:30)
[2016-12-20] MEDS: INSULIN DETEMIR(LEVEMIR) 1unit/0.01ml Soln (100units/ml) SC SCH (21:56)
[2016-12-20 22:00] VITALS: BP 137/69
[2016-12-21] MEDS: ACCU-CHEK COMFORT CURVE STRIP VI SCH ×4 (00:47→18:10)
[2016-12-21] MEDS: InsuLIN REG 1unit/0.01ml Soln (100units/ml) SC SCH ×4 (05:15→18:00)
[2016-12-21 05:49] VITALS: BP 131/74
[2016-12-21] MEDS: SODIUM CHLOR 0.9% PF (SALINE LOCK) 10ML VIAL IV SCH ×2 (10:00→22:11)
[2016-12-21] MEDS: ASPirin 81 mg TAB PO SCH (10:00)
[2016-12-21] MEDS: ARMODAFINIL 150 MG TAB PO SCH (10:22)
[2016-12-21] MEDS: METOPROLOL TARTRATE 50 MG TAB PO SCH ×2 (10:23→22:11)
[2016-12-21] MEDS: LEVOFLOXACIN 500 MG TAB PO SCH (10:23)
[2016-12-21] MEDS: NYSTATIN TOPICAL CREAM 15GM TOP SCH ×2 (10:24→22:11)
[2016-12-21] MEDS: PANTOPRAZOLE 40 MG TAB PO SCH (10:24)
[2016-12-21] MEDS: BENAZEPRIL HCL 10 MG TAB PO SCH (10:24)
[2016-12-21 10:31] VITALS: BP 124/73
[2016-12-21] MEDS ORDERED: ENOXAPARIN SOD 40 MG/0.4 ML SYRINGE SC ONE (11:45)
[2016-12-21 14:33] VITALS: BP 122/70
[2016-12-21 17:00] VITALS: BP 136/75
[2016-12-21 22:00] VITALS: BP 153/85
[2016-12-21 23:07] VITALS: BP 153/85
[2016-12-22] MEDS: INSULIN DETEMIR(LEVEMIR) 1unit/0.01ml Soln (100units/ml) SC SCH
[2016-12-22] MEDS: ACCU-CHEK COMFORT CURVE STRIP VI SCH ×4 (00:28→17:58)
[2016-12-22] MEDS: InsuLIN REG 1unit/0.01ml Soln (100units/ml) SC SCH ×4 (00:31→17:59)
[2016-12-22 05:40] VITALS: BP 114/70
[2016-12-22 09:00] VITALS: BP 107/58
[2016-12-22] MEDS ORDERED: INSUINJ37 SUBCUT (09:43)
[2016-12-22] MEDS ORDERED: PANT40T PO (09:43)
[2016-12-22] MEDS ORDERED: MET50T PO (09:43)
[2016-12-22] MEDS ORDERED: ASPI81CH43 PO (09:43)
[2016-12-22] MEDS ORDERED: BEN10T PO (09:43)
[2016-12-22] MEDS ORDERED: ARMO1TAB PO (09:44)
[2016-12-22] MEDS: ARMODAFINIL 150 MG TAB PO SCH (09:51)
[2016-12-22] MEDS: SODIUM CHLOR 0.9% PF (SALINE LOCK) 10ML VIAL IV SCH (09:53)
[2016-12-22] MEDS: PANTOPRAZOLE 40 MG TAB PO SCH (09:54)
[2016-12-22] MEDS: ASPirin 81 mg TAB PO SCH (09:54)
[2016-12-22] MEDS: BENAZEPRIL HCL 10 MG TAB PO SCH (09:54)
[2016-12-22] MEDS: NYSTATIN TOPICAL CREAM 15GM TOP SCH (09:55)
[2016-12-22] MEDS: METOPROLOL TARTRATE 50 MG TAB PO SCH (09:55)
[2016-12-22] MEDS ORDERED: ENOXAPARIN SOD 40 MG/0.4 ML SYRINGE SC SCH (10:00)
[2016-12-22 12:42] VITALS: BP 99/55
[2016-12-22] MEDS ORDERED: IOHEXOL 350 MG/ML 100ML IJ ONE (14:06)
[2016-12-22 16:04] VITALS: BP 88/55
[2016-12-22 18:24] VITALS: BP 99/55
== END 2016-12-22 19:35 | DRG 720 ==
LOC: ER 21:30 → ICU WEST 21:31 → TELE-CENTR 12-15 12:00 → TELE-EAST 12-19 18:44 → EAST 12-20 15:40
PROVIDERS: ADMIT Internal Medicine; ATTEND Internal Medicine
PROC: 5A1955Z Respiratory Ventilation, Greater than 96 Consecutive Hours (ICD-10-PCS; principal; 2016-12-05)
PROC: 0BH17EZ Insertion of Endotracheal Airway into Trachea, Via Natural or Artificial Opening (ICD-10-PCS; 2016-12-05)
PROC: 02HV33Z Insertion of Infusion Device into Superior Vena Cava, Percutaneous Approach (ICD-10-PCS; 2016-12-09)
PROC: 5A09557 Assistance with Respiratory Ventilation, Greater than 96 Consecutive Hours, Continuous Positive Airway Pressure (ICD-10-PCS; 2016-12-12)
PROC: 0TBB8ZX Excision of Bladder, Via Natural or Artificial Opening Endoscopic, Diagnostic (ICD-10-PCS; 2016-12-20)
DX: A41.9 Sepsis, unspecified organism (principal); J96.01 Acute respiratory failure with hypoxia; I21.4 Non-ST elevation (NSTEMI) myocardial infarction; N17.0 Acute kidney failure with tubular necrosis; R65.21 Severe sepsis with septic shock; J69.0 Pneumonitis due to inhalation of food and vomit; G93.41 Metabolic encephalopathy; G93.1 Anoxic brain damage, not elsewhere classified; E43 Unspecified severe protein-calorie malnutrition; I13.0 Hypertensive heart and chronic kidney disease with heart failure and stage 1 through stage 4 chronic kidney disease, or unspecified chronic kidney disease; I50.9 Heart failure, unspecified; D68.9 Coagulation defect, unspecified; N18.3 Chronic kidney disease, stage 3 (moderate); D63.8 Anemia in other chronic diseases classified elsewhere; E87.6 Hypokalemia; E83.51 Hypocalcemia; L03.90 Cellulitis, unspecified; E66.2 Morbid (severe) obesity with alveolar hypoventilation; N39.0 Urinary tract infection, site not specified; B95.2 Enterococcus as the cause of diseases classified elsewhere; K76.0 Fatty (change of) liver, not elsewhere classified; M19.90 Unspecified osteoarthritis, unspecified site; E11.21 Type 2 diabetes mellitus with diabetic nephropathy; E11.22 Type 2 diabetes mellitus with diabetic chronic kidney disease; G47.33 Obstructive sleep apnea (adult) (pediatric); I45.10 Unspecified right bundle-branch block; N40.0 Benign prostatic hyperplasia without lower urinary tract symptoms; Z83.3 Family history of diabetes mellitus; Z68.43 Body mass index [BMI] 50.0-59.9, adult; Z99.11 Dependence on respirator [ventilator] status
CPT/HCPCS: 31500; 36415; 36569; 36600; 51702; 71010; 71275; 76705; 76775; 80048; 80053; 80061; 80076; 80202; 81001; 82140; 82150; 82270; 82310; 82550; 82565; 82805; 82962; 83036; 83605; 83690; 83735; 83880; 84132; 84443; 84484; 84520; 85007; 85025; 85027; 85379; 85610; 85730; 86704; 86706; 86708; 86803; 87040; 87070; 87081; 87086; 87088; 87186; 87205; 87340; 92610; 93005; 93306; 93970; 94002; 94003; 94660; 96365; 96366; 96367; 96368; 96372; 97001; 97116; 97530; 99291; C9113; J0330; J0690; J0696; J1100; J1815; J1885; J2405; J2704; J3010; J3490; J7060

== ENCOUNTER 2017-09-29 09:15 | Emergency (ER) | payer MEDICAID ==
[~2017-09-29] VITALS: Ht 167.6 cm; Wt 176.0 kg
[~2017-09-29 09:15] MED LIST: ALB5IS NEB; ARMO1TAB PO; ASPI81CH43 PO; BEN10T PO; BENA20TA14 PO; GLY5T PO; HYDR-4683 PO; INSUINJ37 SUBCUT; MET50T PO; PANT40T PO; TRAV0.00 EACHEYE
[2017-09-29] MEDS ORDERED: SILVER NITRATE-POTAS NITRA STICK TOP ONE (14:45)
[2017-09-29] MEDS ORDERED: LIDOCAINE 1% HCL (LOCAL ANESTH.) INJ 20ML MDV ID ONE (14:45)
[2017-09-29] MEDS ORDERED: LIDOCAINE W/ EPINEPHRINE 1% 20ML VIAL SC ONE (14:45)
[2017-09-29] MEDS ORDERED: NEOMYCIN-BACITRACIN-POLYM UNITDOSE PKG TOP OINT TOP ONE (14:45)
[2017-09-29 15:27] VITALS: BP 143/87
== END 2017-09-29 15:44 | disposition home or self-care (01) ==
LOC: ER 09:15
DX: S81.811A Laceration without foreign body, right lower leg, initial encounter (principal); I11.0 Hypertensive heart disease with heart failure; I50.9 Heart failure, unspecified; E11.9 Type 2 diabetes mellitus without complications; E66.01 Morbid (severe) obesity due to excess calories; F15.10 Other stimulant abuse, uncomplicated; F12.10 Cannabis abuse, uncomplicated; F10.20 Alcohol dependence, uncomplicated; Y90.9 Presence of alcohol in blood, level not specified; X58.XXXA Exposure to other specified factors, initial encounter; Z68.44 Body mass index [BMI] 60.0-69.9, adult; Y93.89 Activity, other specified; Y92.89 Other specified places as the place of occurrence of the external cause; Y99.8 Other external cause status
CPT/HCPCS: 12001; 99283; J2001

== ENCOUNTER 2017-10-03 08:53 | Inpatient (IN) | payer MEDICAID ==
[~2017-10-03] VITALS: Ht 167.6 cm; Wt 178.9 kg
[2017-10-03] MEDS ORDERED: SODIUM CHLORIDE 0.9% 1,000 ML IV ONE (11:11)
[2017-10-03 11:36] LABS: Basophils # (auto) 0.1 uL; Basophils % (auto) 0.6 % (0.0-2.0); Eosinophils # (auto) 0.3 uL; Eosinophils % (auto) 2.3 % (0.0-7.0); Hematocrit 41.6 % (41.0-53.0); Hemoglobin 13.2 g/dL (13.5-17.5); Lymphocytes # (auto) 1.1 uL; Mean Corpuscular Hgb Conc. 31.7 g/dL (32.0-36.0); Mean Corpuscular Volume 100.8 fL (80.0-100.0); Monocytes # (auto) 0.9 uL; Monocytes % (auto) 8.1 % (0.0-12.0); Neutrophils # (auto) 8.7 uL; Nucleated Red Blood Cells % 0.1 %; Platelet Count (auto) 380 10^3/uL (140-450); Red Blood Cells 4.13 10^6/uL (4.5-5.90); Red Cell Distribution Width 14.4 % (11.8-14.3)
[2017-10-03 11:44] LABS: Alanine Aminotransferase 28 U/L (16-61); Albumin 3.1 g/dL (3.4-5.0); Alkaline Phosphatase 55 U/L (45-117); Anion Gap 4 (5-15); Aspartate Aminotransferase 18 U/L (15-37); BUN/Creatinine Ratio 13.3; Bilirubin, Total 0.9 mg/dL (0.2-1.0); Blood Urea Nitrogen 11 mg/dL (7-18); Calcium 8.9 mg/dL (8.5-10.1); Carbon Dioxide 39 mmol/L (21-32); Chloride 93 mmol/L (98-107); GFR African American 123 mL/min; GFR Non-African American 101 mL/min; Glucose 124 mg/dL (74-106); Magnesium 1.8 mg/dL (1.6-2.6); Sodium 136 mmol/L (136-145); Total Protein 7.9 g/dL (6.4-8.2)
[2017-10-03 12:10] LABS: Urine Bacteria NONE SEEN /hpf (None Seen); Urine Blood Negative /uL (Negative); Urine Specific Gravity 1.017 (1.001-1.035); Urine WBC 3 /hpf (0 - 3)
[2017-10-03] MEDS ORDERED: FUROSEMIDE 40 MG/4 ML VIAL IV ONE (13:00)
[2017-10-03] MEDS ORDERED: SPIRONOLACTONE 25 MG TAB PO ONE (13:00)
[2017-10-03] MEDS ORDERED: cefTRIAXone 1GM/10ml IVPUSH 10 ML IV ONE (13:00)
[2017-10-03] MEDS ORDERED: TEMAZEPAM 15 MG CAP PO PRN (15:45)
[2017-10-03] MEDS ORDERED: DEXTROSE (50%) 50ML SYRG IV PRN (15:45)
[2017-10-03] MEDS ORDERED: ACETAMINOPHEN 325 MG TAB PO PRN (15:45)
[2017-10-03] MEDS ORDERED: NITROGLYCERIN 0.4 MG SL TAB SL PRN (15:45)
[2017-10-03] MEDS ORDERED: ONDANSETRON HCL 4 MG/2 ML VIAL IV PRN (15:45)
[2017-10-03] MEDS ORDERED: HYDROcodone-ACET 5/325MG TAB PO PRN (15:45)
[2017-10-03] MEDS ORDERED: DOCUSATE SOD 100 MG CAP PO PRN (15:45)
[2017-10-03] MEDS ORDERED: MORPHINE SULF INJ 2 MG/ML SYRINGE 1ML IV PRN (15:45)
[2017-10-03] MEDS ORDERED: AZITHROMYCIN 500MG/ 250ML 250 ML IV ONE (16:00)
[2017-10-03] MEDS: InsuLIN REG 1unit/0.01ml Soln (100units/ml) SC SCH ×2 (17:00→21:45)
[2017-10-03] MEDS: ACCU-CHEK COMFORT CURVE STRIP VI SCH ×2 (17:02→21:39)
[2017-10-03] MEDS: FUROSEMIDE 40 MG/4 ML VIAL IV SCH (17:56)
[2017-10-03] MEDS: ALBUTEROL SULF 2.5 MG/0.5ML(0.5%) NEB SOLN NEB SCH (18:00)
[2017-10-03] MEDS: Boost Glucose Control 8 Ounces PO SCH (20:04)
[2017-10-03] MEDS: POTASSIUM CHL 10 Meq TABLET PO SCH (21:37)
[2017-10-03] MEDS: METOPROLOL TARTRATE 50 MG TAB PO SCH (21:37)
[2017-10-03] MEDS: TRAVATAN 0.004% EACHEYE SCH (21:38)
[2017-10-03] MEDS: FAMOTIDINE 20 MG TAB PO SCH (21:38)
[2017-10-03] MEDS: EYE EACHEYE SCH (21:38)
[2017-10-03] MEDS: SODIUM CHLOR 0.9% PF (SALINE LOCK) 10ML VIAL IV SCH (21:40)
[2017-10-03] MEDS: INSULIN DETEMIR(LEVEMIR) 1unit/0.01ml Soln (100units/ml) SC SCH (21:45)
[2017-10-03 23:45] VITALS: BP 140/70
[2017-10-04] VITALS (7 sets, daily range): BP systolic 127–144; BP diastolic 58–83
[2017-10-04] MEDS: MORPHINE SULF INJ 2 MG/ML SYRINGE 1ML IV PRN ×2 (00:17→19:54)
[2017-10-04] MEDS: ALBUTEROL SULF 2.5 MG/0.5ML(0.5%) NEB SOLN NEB SCH ×4 (00:30→20:05)
[2017-10-04] MEDS: SODIUM CHLOR 0.9% PF (SALINE LOCK) 10ML VIAL IV SCH ×3 (06:00→22:00)
[2017-10-04] MEDS: InsuLIN REG 1unit/0.01ml Soln (100units/ml) SC SCH ×4 (06:25→22:00)
[2017-10-04] MEDS: ACCU-CHEK COMFORT CURVE STRIP VI SCH ×4 (06:26→22:00)
[2017-10-04] MEDS: FUROSEMIDE 40 MG/4 ML VIAL IV SCH ×2 (06:59→18:31)
[2017-10-04 07:59] LABS: Basophils # (auto) 0.1 uL; Basophils % (auto) 0.7 % (0.0-2.0); Eosinophils # (auto) 0.3 uL; Eosinophils % (auto) 2.7 % (0.0-7.0); Hematocrit 41.3 % (41.0-53.0); Hemoglobin 13.3 g/dL (13.5-17.5); Lymphocytes # (auto) 1.2 uL; Lymphocytes % (auto) 10.7 % (10.0-50.0); Mean Corpuscular Hemoglobin 32.4 pg (28.0-32.0); Mean Corpuscular Hgb Conc. 32.1 g/dL (32.0-36.0); Mean Corpuscular Volume 101.2 fL (80.0-100.0); Monocytes # (auto) 0.9 uL; Monocytes % (auto) 7.7 % (0.0-12.0); Neutrophils # (auto) 8.8 uL; Neutrophils % (auto) 78.2 % (37.0-80.0); Platelet Count (auto) 370 10^3/uL (140-450); Red Blood Cells 4.09 10^6/uL (4.5-5.90); Red Cell Distribution Width 14.4 % (11.8-14.3); White Blood Cell 11.2 10^3/uL (4.4-10.8)
[2017-10-04] MEDS: ARMODAFINIL 150 MG TAB PO SCH (08:03)
[2017-10-04 08:17] LABS: Albumin 2.9 g/dL (3.4-5.0); BUN/Creatinine Ratio 14.8; Bilirubin, Total 0.8 mg/dL (0.2-1.0); Calcium 8.9 mg/dL (8.5-10.1); Total Protein 7.6 g/dL (6.4-8.2)
[2017-10-04] MEDS: cefTRIAXone 1GM/10ml IVPUSH 10 ML IV SCH (09:56)
[2017-10-04] MEDS: Boost Glucose Control 8 Ounces PO SCH ×3 (09:56→18:31)
[2017-10-04] MEDS: ASPirin-EC 81 mg tab PO SCH (09:57)
[2017-10-04] MEDS: ENOXAPARIN SOD 40 MG/0.4 ML SYRINGE SC SCH (09:57)
[2017-10-04] MEDS: MULTIPLE VITAMIN TAB PO SCH (09:58)
[2017-10-04] MEDS: POTASSIUM CHL 10 Meq TABLET PO SCH ×2 (09:58→23:44)
[2017-10-04] MEDS: PANTOPRAZOLE 40 MG TAB PO SCH (09:58)
[2017-10-04] MEDS: FAMOTIDINE 20 MG TAB PO SCH ×2 (09:58→23:44)
[2017-10-04] MEDS: METOPROLOL TARTRATE 50 MG TAB PO SCH ×2 (09:59→22:00)
[2017-10-04] MEDS: BENAZEPRIL HCL 10 MG TAB PO SCH (09:59)
[2017-10-04] MEDS ORDERED: AZITHROMYCIN 500MG/ 250ML 250 ML IV SCH ×2 (10:00→12:00)
[2017-10-04] MEDS ORDERED: CLINDAMYCIN 300MG IV 50 ML IV ONE (11:00)
[2017-10-04] MEDS: CLINDAMYCIN 300MG IV 50 ML IV SCH (18:32)
[2017-10-04] MEDS: TRAVATAN 0.004% EACHEYE SCH (22:00)
[2017-10-04] MEDS: EYE EACHEYE SCH (22:00)
[2017-10-04] MEDS: INSULIN DETEMIR(LEVEMIR) 1unit/0.01ml Soln (100units/ml) SC SCH (23:46)
[2017-10-05] MEDS: ALBUTEROL SULF 2.5 MG/0.5ML(0.5%) NEB SOLN NEB SCH ×4 (01:04→19:24)
[2017-10-05] MEDS: CLINDAMYCIN 300MG IV 50 ML IV SCH ×3 (02:52→20:39)
[2017-10-05 05:00] VITALS: BP 146/94
[2017-10-05] MEDS: FUROSEMIDE 40 MG/4 ML VIAL IV SCH ×2 (06:15→18:31)
[2017-10-05] MEDS: InsuLIN REG 1unit/0.01ml Soln (100units/ml) SC SCH ×4 (06:16→22:05)
[2017-10-05] MEDS: SODIUM CHLOR 0.9% PF (SALINE LOCK) 10ML VIAL IV SCH ×3 (06:16→22:02)
[2017-10-05] MEDS: ACCU-CHEK COMFORT CURVE STRIP VI SCH ×4 (06:17→22:05)
[2017-10-05 06:49] LABS: Basophils # (auto) 0.1 uL; Basophils % (auto) 0.5 % (0.0-2.0); Eosinophils # (auto) 0.4 uL; Eosinophils % (auto) 3.6 % (0.0-7.0); Hematocrit 39.3 % (41.0-53.0); Hemoglobin 12.7 g/dL (13.5-17.5); Lymphocytes # (auto) 1.4 uL; Mean Corpuscular Hemoglobin 32.3 pg (28.0-32.0); Mean Corpuscular Hgb Conc. 32.3 g/dL (32.0-36.0); Monocytes # (auto) 0.9 uL; Monocytes % (auto) 7.7 % (0.0-12.0); Neutrophils # (auto) 8.8 uL; Neutrophils % (auto) 76.2 % (37.0-80.0); Nucleated Red Blood Cells % 0.2 %; Platelet Count (auto) 358 10^3/uL (140-450); Red Blood Cells 3.93 10^6/uL (4.5-5.90); Red Cell Distribution Width 14.4 % (11.8-14.3); White Blood Cell 11.6 10^3/uL (4.4-10.8)
[2017-10-05 06:55] LABS: Albumin 2.8 g/dL (3.4-5.0); Anion Gap 5 (5-15); Blood Urea Nitrogen 16 mg/dL (7-18); Calcium 8.6 mg/dL (8.5-10.1); Chloride 91 mmol/L (98-107); Glucose 102 mg/dL (74-106); Potassium 3.5 mmol/L (3.5-5.1); Sodium 140 mmol/L (136-145)
[2017-10-05 07:00] LABS: Carbon Dioxide 44 mmol/L (21-32)
[2017-10-05 07:01] LABS: Alanine Aminotransferase 21 U/L (16-61); Alkaline Phosphatase 46 U/L (45-117); Aspartate Aminotransferase 17 U/L (15-37); BUN/Creatinine Ratio 18.6; Bilirubin, Total 0.7 mg/dL (0.2-1.0); GFR African American 118 mL/min; GFR Non-African American 97 mL/min; Total Protein 7.3 g/dL (6.4-8.2)
[2017-10-05] MEDS: Boost Glucose Control 8 Ounces PO SCH ×3 (08:00→18:00)
[2017-10-05 09:00] VITALS: BP 123/70
[2017-10-05] MEDS ORDERED: SPIRONOLACTONE 25 MG TAB PO ONE (11:00)
[2017-10-05] MEDS: FAMOTIDINE 20 MG TAB PO SCH ×2 (12:08→22:02)
[2017-10-05] MEDS: ENOXAPARIN SOD 40 MG/0.4 ML SYRINGE SC SCH (12:08)
[2017-10-05] MEDS: MULTIPLE VITAMIN TAB PO SCH (12:08)
[2017-10-05] MEDS: PANTOPRAZOLE 40 MG TAB PO SCH (12:08)
[2017-10-05] MEDS: ARMODAFINIL 150 MG TAB PO SCH (12:11)
[2017-10-05] MEDS: ASPirin-EC 81 mg tab PO SCH (12:11)
[2017-10-05] MEDS: POTASSIUM CHL 10 Meq TABLET PO SCH ×2 (12:12→22:02)
[2017-10-05] MEDS: METOPROLOL TARTRATE 50 MG TAB PO SCH ×2 (12:12→22:02)
[2017-10-05] MEDS: BENAZEPRIL HCL 10 MG TAB PO SCH (12:12)
[2017-10-05] MEDS: AZITHROMYCIN 500MG/ 250ML 250 ML IV SCH (12:13)
[2017-10-05] MEDS: cefTRIAXone 1GM/10ml IVPUSH 10 ML IV SCH (12:19)
[2017-10-05 13:00] VITALS: BP 137/76
[2017-10-05 17:00] VITALS: BP 126/71
[2017-10-05] MEDS: SPIRONOLACTONE 25 MG TAB PO SCH (18:31)
[2017-10-05 21:50] VITALS: BP 104/68
[2017-10-05] MEDS: TRAVATAN 0.004% EACHEYE SCH (22:00)
[2017-10-05] MEDS: EYE EACHEYE SCH (22:00)
[2017-10-05] MEDS: INSULIN DETEMIR(LEVEMIR) 1unit/0.01ml Soln (100units/ml) SC SCH (22:05)
[2017-10-06] VITALS (8 sets, daily range): BP systolic 114–150; BP diastolic 71–92
[2017-10-06] MEDS: ALBUTEROL SULF 2.5 MG/0.5ML(0.5%) NEB SOLN NEB SCH ×4 (00:53→19:12)
[2017-10-06] MEDS: CLINDAMYCIN 300MG IV 50 ML IV SCH ×3 (03:26→17:30)
[2017-10-06 05:31] LABS: Basophils # (auto) 0.1 uL; Basophils % (auto) 0.6 % (0.0-2.0); Eosinophils # (auto) 0.5 uL; Eosinophils % (auto) 4.2 % (0.0-7.0); Hematocrit 40.5 % (41.0-53.0); Hemoglobin 12.9 g/dL (13.5-17.5); Lymphocytes # (auto) 1.3 uL; Lymphocytes % (auto) 11.6 % (10.0-50.0); Mean Corpuscular Hgb Conc. 31.9 g/dL (32.0-36.0); Mean Corpuscular Volume 100.3 fL (80.0-100.0); Monocytes % (auto) 8.2 % (0.0-12.0); Neutrophils # (auto) 8.8 uL; Neutrophils % (auto) 75.4 % (37.0-80.0); Platelet Count (auto) 384 10^3/uL (140-450); Red Blood Cells 4.04 10^6/uL (4.5-5.90); Red Cell Distribution Width 14.4 % (11.8-14.3); White Blood Cell 11.6 10^3/uL (4.4-10.8)
[2017-10-06] MEDS: FUROSEMIDE 40 MG/4 ML VIAL IV SCH ×2 (05:48→17:30)
[2017-10-06] MEDS: SODIUM CHLOR 0.9% PF (SALINE LOCK) 10ML VIAL IV SCH ×3 (05:48→21:59)
[2017-10-06] MEDS: SPIRONOLACTONE 25 MG TAB PO SCH ×2 (05:48→17:30)
[2017-10-06 06:04] LABS: Alanine Aminotransferase 23 U/L (16-61); Albumin 2.8 g/dL (3.4-5.0); Alkaline Phosphatase 43 U/L (45-117); Anion Gap 7 (5-15); Aspartate Aminotransferase 18 U/L (15-37); BUN/Creatinine Ratio 17.5; Bilirubin, Total 0.5 mg/dL (0.2-1.0); Blood Urea Nitrogen 20 mg/dL (7-18); Calcium 8.6 mg/dL (8.5-10.1); Chloride 94 mmol/L (98-107); GFR African American 85 mL/min; GFR Non-African American 70 mL/min; Glucose 116 mg/dL (74-106); Potassium 3.9 mmol/L (3.5-5.1); Sodium 143 mmol/L (136-145); Total Protein 7.6 g/dL (6.4-8.2)
[2017-10-06 06:14] LABS: Carbon Dioxide 42 mmol/L (21-32)
[2017-10-06] MEDS: ACCU-CHEK COMFORT CURVE STRIP VI SCH ×4 (06:20→22:01)
[2017-10-06] MEDS: InsuLIN REG 1unit/0.01ml Soln (100units/ml) SC SCH ×4 (06:20→22:01)
[2017-10-06] MEDS: ARMODAFINIL 150 MG TAB PO SCH (08:00)
[2017-10-06] MEDS: Boost Glucose Control 8 Ounces PO SCH ×3 (08:01→17:30)
[2017-10-06] MEDS: cefTRIAXone 1GM/10ml IVPUSH 10 ML IV SCH (09:00)
[2017-10-06] MEDS: ENOXAPARIN SOD 40 MG/0.4 ML SYRINGE SC SCH (09:54)
[2017-10-06] MEDS: MULTIPLE VITAMIN TAB PO SCH (09:55)
[2017-10-06] MEDS: ASPirin-EC 81 mg tab PO SCH (09:55)
[2017-10-06] MEDS: POTASSIUM CHL 10 Meq TABLET PO SCH ×2 (09:55→21:59)
[2017-10-06] MEDS: FAMOTIDINE 20 MG TAB PO SCH ×2 (09:55→22:00)
[2017-10-06] MEDS: PANTOPRAZOLE 40 MG TAB PO SCH (09:55)
[2017-10-06] MEDS: BENAZEPRIL HCL 10 MG TAB PO SCH (09:56)
[2017-10-06] MEDS: METOPROLOL TARTRATE 50 MG TAB PO SCH ×2 (09:56→22:00)
[2017-10-06] MEDS: AZITHROMYCIN 500MG/ 250ML 250 ML IV SCH (11:17)
[2017-10-06] MEDS ORDERED: LATANOPROST 0.005 % OPTH(EYE) SOL 2.5ML EACHEYE SCH (22:00)
[2017-10-06] MEDS: INSULIN DETEMIR(LEVEMIR) 1unit/0.01ml Soln (100units/ml) SC SCH (22:01)
[2017-10-06] MEDS: MORPHINE SULF INJ 2 MG/ML SYRINGE 1ML IV PRN (22:02)
[2017-10-07] MEDS: ALBUTEROL SULF 2.5 MG/0.5ML(0.5%) NEB SOLN NEB SCH ×3 (00:30→11:44)
[2017-10-07] MEDS: CLINDAMYCIN 300MG IV 50 ML IV SCH ×2 (03:00→10:26)
[2017-10-07 05:00] VITALS: BP_SYST 148; BP_SYST 160; BP_DIAS 76; BP_DIAS 86
[2017-10-07] MEDS: SPIRONOLACTONE 25 MG TAB PO SCH ×2 (06:00→06:33)
[2017-10-07] MEDS: SODIUM CHLOR 0.9% PF (SALINE LOCK) 10ML VIAL IV SCH (06:33)
[2017-10-07] MEDS: FUROSEMIDE 40 MG/4 ML VIAL IV SCH (06:33)
[2017-10-07] MEDS: InsuLIN REG 1unit/0.01ml Soln (100units/ml) SC SCH ×2 (06:34→06:36)
[2017-10-07] MEDS: ACCU-CHEK COMFORT CURVE STRIP VI SCH (06:35)
[2017-10-07] MEDS: ARMODAFINIL 150 MG TAB PO SCH (08:38)
[2017-10-07] MEDS: cefTRIAXone 1GM/10ml IVPUSH 10 ML IV SCH (08:42)
[2017-10-07] MEDS: Boost Glucose Control 8 Ounces PO SCH (08:46)
[2017-10-07 09:00] VITALS: BP 120/68
[2017-10-07 10:26] LABS: Basophils # (auto) 0.1 uL; Basophils % (auto) 0.7 % (0.0-2.0); Eosinophils # (auto) 0.5 uL; Lymphocytes # (auto) 1.2 uL; Mean Corpuscular Hemoglobin 31.9 pg (28.0-32.0); Mean Corpuscular Hgb Conc. 31.6 g/dL (32.0-36.0); Mean Corpuscular Volume 100.8 fL (80.0-100.0); Monocytes # (auto) 1.1 uL; Monocytes % (auto) 8.3 % (0.0-12.0); Nucleated Red Blood Cells % 0.1 %; Platelet Count (auto) 381 10^3/uL (140-450); Red Blood Cells 4.07 10^6/uL (4.5-5.90); Red Cell Distribution Width 14.3 % (11.8-14.3); White Blood Cell 12.8 10^3/uL (4.4-10.8)
[2017-10-07] MEDS: ASPirin-EC 81 mg tab PO SCH (10:27)
[2017-10-07] MEDS: BENAZEPRIL HCL 10 MG TAB PO SCH (10:28)
[2017-10-07] MEDS: PANTOPRAZOLE 40 MG TAB PO SCH (10:28)
[2017-10-07] MEDS: METOPROLOL TARTRATE 50 MG TAB PO SCH (10:28)
[2017-10-07] MEDS: MULTIPLE VITAMIN TAB PO SCH (10:28)
[2017-10-07] MEDS: POTASSIUM CHL 10 Meq TABLET PO SCH (10:28)
[2017-10-07] MEDS: ENOXAPARIN SOD 40 MG/0.4 ML SYRINGE SC SCH (10:29)
[2017-10-07] MEDS: FAMOTIDINE 20 MG TAB PO SCH (10:29)
[2017-10-07 11:03] LABS: Potassium 3.9 mmol/L (3.5-5.1)
[2017-10-07 11:04] LABS: Albumin 3.1 g/dL (3.4-5.0); BUN/Creatinine Ratio 20.6; Bilirubin, Total 0.6 mg/dL (0.2-1.0); Calcium 9.1 mg/dL (8.5-10.1); Total Protein 8.4 g/dL (6.4-8.2)
[2017-10-07 12:34] VITALS: BP 155/71
[2017-10-07 13:00] VITALS: BP 155/71
== END 2017-10-07 16:00 | disposition home or self-care (01) | DRG 720 ==
LOC: ER 08:53 → TELE 08:54 → TELE-WESTW 23:35
PROVIDERS: ADMIT Internal Medicine; ATTEND Internal Medicine
PROC: 5A09357 Assistance with Respiratory Ventilation, Less than 24 Consecutive Hours, Continuous Positive Airway Pressure (ICD-10-PCS; principal; 2017-10-05)
PROC: 5A09357 Assistance with Respiratory Ventilation, Less than 24 Consecutive Hours, Continuous Positive Airway Pressure (ICD-10-PCS; 2017-10-07)
DX: A41.9 Sepsis, unspecified organism (principal); J96.91 Respiratory failure, unspecified with hypoxia; I50.43 Acute on chronic combined systolic (congestive) and diastolic (congestive) heart failure; E44.0 Moderate protein-calorie malnutrition; J18.9 Pneumonia, unspecified organism; I11.0 Hypertensive heart disease with heart failure; E10.21 Type 1 diabetes mellitus with diabetic nephropathy; L03.115 Cellulitis of right lower limb; L03.116 Cellulitis of left lower limb; J20.9 Acute bronchitis, unspecified; D63.8 Anemia in other chronic diseases classified elsewhere; E66.2 Morbid (severe) obesity with alveolar hypoventilation; F17.200 Nicotine dependence, unspecified, uncomplicated; F32.9 Major depressive disorder, single episode, unspecified; H40.9 Unspecified glaucoma; I87.8 Other specified disorders of veins; K21.9 Gastro-esophageal reflux disease without esophagitis; Z79.899 Other long term (current) drug therapy; Z68.44 Body mass index [BMI] 60.0-69.9, adult
CPT/HCPCS: 36415; 36600; 51702; 71046; 80053; 81001; 82805; 82962; 83036; 83735; 83880; 84443; 84484; 85025; 87040; 87086; 93005; 93306; 93970; 94640; 94660; 94761; 96360; 96375; 97116; 97530; J1815; J3490

== ENCOUNTER 2017-10-26 11:00 | Inpatient (IN) | payer MEDICAID ==
[~2017-10-26] VITALS: Ht 170.2 cm; Wt 167.4 kg
[2017-10-26 12:05] LABS: Basophils # (auto) 0.1 uL; Basophils % (auto) 0.9 % (0.0-2.0); Eosinophils # (auto) 0.1 uL; Eosinophils % (auto) 0.8 % (0.0-7.0); Hematocrit 44.6 % (41.0-53.0); Hemoglobin 14.1 g/dL (13.5-17.5); Lymphocytes # (auto) 0.8 uL; Lymphocytes % (auto) 7.4 % (10.0-50.0); Mean Corpuscular Hemoglobin 31.1 pg (28.0-32.0); Mean Corpuscular Hgb Conc. 31.6 g/dL (32.0-36.0); Mean Corpuscular Volume 98.6 fL (80.0-100.0); Monocytes # (auto) 0.6 uL; Monocytes % (auto) 5.6 % (0.0-12.0); Neutrophils # (auto) 9.2 uL; Neutrophils % (auto) 85.3 % (37.0-80.0); Nucleated Red Blood Cells % 0.1 %; Platelet Count (auto) 297 10^3/uL (140-450); Red Blood Cells 4.53 10^6/uL (4.5-5.90); Red Cell Distribution Width 14.6 % (11.8-14.3); White Blood Cell 10.8 10^3/uL (4.4-10.8)
[2017-10-26 12:15] LABS: INR 1.01 (0.9-1.15); Partial Thromboplastin Time 26.9 sec (22.64-33.71)
[2017-10-26 12:27] LABS: Alanine Aminotransferase 29 U/L (16-61); Albumin 3.4 g/dL (3.4-5.0); Alkaline Phosphatase 61 U/L (45-117); Anion Gap 4 (5-15); Aspartate Aminotransferase 23 U/L (15-37); Bilirubin, Total 0.5 mg/dL (0.2-1.0); Blood Urea Nitrogen 24 mg/dL (7-18); Calcium 9.3 mg/dL (8.5-10.1); Carbon Dioxide 35 mmol/L (21-32); Chloride 97 mmol/L (98-107); GFR African American 113 mL/min; GFR Non-African American 94 mL/min; Glucose 80 mg/dL (74-106); Magnesium 2.3 mg/dL (1.6-2.6); Potassium 5.4 mmol/L (3.5-5.1); Sodium 136 mmol/L (136-145); Total Protein 8.9 g/dL (6.4-8.2)
[2017-10-26] MEDS ORDERED: DEXTROSE (50%) 50ML SYRG IV PRN (14:00)
[2017-10-26] MEDS ORDERED: BENAZEPRIL HCL 10 MG TAB PO ONE (14:00)
[2017-10-26] MEDS ORDERED: MORPHINE SULF INJ 2 MG/ML SYRINGE 1ML IV PRN (14:00)
[2017-10-26] MEDS ORDERED: NITROGLYCERIN 0.4 MG SL TAB SL PRN (14:00)
[2017-10-26] MEDS ORDERED: FUROSEMIDE 40 MG/4 ML VIAL IV ONE (14:00)
[2017-10-26 15:10] VITALS: BP 127/74
[2017-10-26 15:17] VITALS: BP 127/74
[2017-10-26] MEDS: InsuLIN REG 1unit/0.01ml Soln (100units/ml) SC SCH ×2 (17:00→21:53)
[2017-10-26] MEDS: ACCU-CHEK COMFORT CURVE STRIP VI SCH ×2 (17:21→21:53)
[2017-10-26] MEDS: IPRATROPIUM BROM 0.5 MG/2.5ML INH SOL NEB SCH (18:20)
[2017-10-26] MEDS: ALBUTEROL SULF 2.5 MG/0.5ML(0.5%) NEB SOLN NEB SCH (18:20)
[2017-10-27] VITALS (8 sets, daily range): BP systolic 109–138; BP diastolic 62–86
[2017-10-27 05:40] LABS: Urine Bacteria NONE SEEN /hpf (None Seen); Urine Blood Negative /uL (Negative); Urine Specific Gravity 1.013 (1.001-1.035); Urine WBC 2 /hpf (0 - 3)
[2017-10-27] MEDS: InsuLIN REG 1unit/0.01ml Soln (100units/ml) SC SCH ×4 (06:10→22:40)
[2017-10-27] MEDS: ACCU-CHEK COMFORT CURVE STRIP VI SCH ×4 (06:10→22:41)
[2017-10-27] MEDS: ALBUTEROL SULF 2.5 MG/0.5ML(0.5%) NEB SOLN NEB SCH ×4 (06:49→19:28)
[2017-10-27] MEDS: IPRATROPIUM BROM 0.5 MG/2.5ML INH SOL NEB SCH ×4 (06:49→19:28)
[2017-10-27 07:11] LABS: BUN/Creatinine Ratio 26.3; Potassium 5.4 mmol/L (3.5-5.1)
[2017-10-27] MEDS: ASPirin 81 mg TAB PO SCH (09:53)
[2017-10-27] MEDS: PANTOPRAZOLE 40 MG TAB PO SCH (09:53)
[2017-10-27] MEDS: FUROSEMIDE 40 MG/4 ML VIAL IV SCH (09:54)
[2017-10-27] MEDS: BENAZEPRIL HCL 10 MG TAB PO SCH (09:54)
[2017-10-27] MEDS: HYDROcodone-ACET 5/325MG TAB PO PRN ×2 (10:34→22:40)
[2017-10-27] MEDS ORDERED: SODIUM POLYSTYRENE SULF 15GM/60ML SUSP PO ONE (12:45)
[2017-10-27] MEDS ORDERED: KETOROLAC TROMETH 30 MG/ML 1ML VIAL IV PRN (16:15)
[2017-10-28] VITALS (7 sets, daily range): BP systolic 121–142; BP diastolic 62–83
[2017-10-28] MEDS: ACCU-CHEK COMFORT CURVE STRIP VI SCH ×4 (06:12→21:27)
[2017-10-28] MEDS: InsuLIN REG 1unit/0.01ml Soln (100units/ml) SC SCH ×4 (06:12→21:27)
[2017-10-28] MEDS: ALBUTEROL SULF 2.5 MG/0.5ML(0.5%) NEB SOLN NEB SCH ×4 (06:53→19:54)
[2017-10-28] MEDS: IPRATROPIUM BROM 0.5 MG/2.5ML INH SOL NEB SCH ×4 (06:53→19:54)
[2017-10-28 07:16] LABS: Basophils # (auto) 0.1 uL; Basophils % (auto) 0.7 % (0.0-2.0); Eosinophils # (auto) 0.5 uL; Eosinophils % (auto) 5.9 % (0.0-7.0); Hematocrit 38.2 % (41.0-53.0); Hemoglobin 12.8 g/dL (13.5-17.5); Lymphocytes # (auto) 1.4 uL; Lymphocytes % (auto) 16.4 % (10.0-50.0); Mean Corpuscular Hemoglobin 32.2 pg (28.0-32.0); Mean Corpuscular Hgb Conc. 33.4 g/dL (32.0-36.0); Mean Corpuscular Volume 96.4 fL (80.0-100.0); Monocytes # (auto) 0.7 uL; Monocytes % (auto) 7.8 % (0.0-12.0); Neutrophils # (auto) 5.9 uL; Neutrophils % (auto) 69.2 % (37.0-80.0); Platelet Count (auto) 263 10^3/uL (140-450); Red Blood Cells 3.97 10^6/uL (4.5-5.90); Red Cell Distribution Width 14.3 % (11.8-14.3); White Blood Cell 8.5 10^3/uL (4.4-10.8)
[2017-10-28 07:33] LABS: BUN/Creatinine Ratio 23.8; Bilirubin, Total 0.9 mg/dL (0.2-1.0); Calcium 8.9 mg/dL (8.5-10.1); Potassium 4.3 mmol/L (3.5-5.1); Total Protein 7.9 g/dL (6.4-8.2)
[2017-10-28] MEDS: ASPirin 81 mg TAB PO SCH (12:18)
[2017-10-28] MEDS: BENAZEPRIL HCL 10 MG TAB PO SCH (12:18)
[2017-10-28] MEDS: PANTOPRAZOLE 40 MG TAB PO SCH (12:18)
[2017-10-28] MEDS: FUROSEMIDE 40 MG/4 ML VIAL IV SCH (12:28)
[2017-10-28] MEDS ORDERED: glyBURIDE 5 MG TAB PO ONE (13:30)
[2017-10-28] MEDS ORDERED: FURO20TA PO (15:30)
[2017-10-28] MEDS ORDERED: ENAL2.5T PO (15:31)
[2017-10-29] MEDS: HYDROcodone-ACET 5/325MG TAB PO PRN (04:54)
[2017-10-29 05:00] VITALS: BP 113/52
[2017-10-29 05:36] LABS: Basophils # (auto) 0.1 uL; Basophils % (auto) 0.7 % (0.0-2.0); Eosinophils # (auto) 0.5 uL; Eosinophils % (auto) 4.6 % (0.0-7.0); Hemoglobin 13.2 g/dL (13.5-17.5); Lymphocytes # (auto) 1.5 uL; Lymphocytes % (auto) 13.6 % (10.0-50.0); Mean Corpuscular Hemoglobin 31.9 pg (28.0-32.0); Mean Corpuscular Volume 96.7 fL (80.0-100.0); Monocytes # (auto) 0.8 uL; Monocytes % (auto) 7.3 % (0.0-12.0); Neutrophils % (auto) 73.8 % (37.0-80.0); Nucleated Red Blood Cells % 0.1 %; Platelet Count (auto) 264 10^3/uL (140-450); Red Blood Cells 4.13 10^6/uL (4.5-5.90); Red Cell Distribution Width 14.7 % (11.8-14.3); White Blood Cell 10.8 10^3/uL (4.4-10.8)
[2017-10-29] MEDS: IPRATROPIUM BROM 0.5 MG/2.5ML INH SOL NEB SCH ×3 (05:56→11:10)
[2017-10-29] MEDS: ALBUTEROL SULF 2.5 MG/0.5ML(0.5%) NEB SOLN NEB SCH ×3 (05:56→11:10)
[2017-10-29] MEDS: ACCU-CHEK COMFORT CURVE STRIP VI SCH ×2 (05:59→11:30)
[2017-10-29] MEDS: InsuLIN REG 1unit/0.01ml Soln (100units/ml) SC SCH ×2 (05:59→11:30)
[2017-10-29 06:14] LABS: Alanine Aminotransferase 24 U/L (16-61); Alkaline Phosphatase 51 U/L (45-117); Anion Gap 7 (5-15); Aspartate Aminotransferase 16 U/L (15-37); BUN/Creatinine Ratio 25.8; Bilirubin, Total 0.8 mg/dL (0.2-1.0); Blood Urea Nitrogen 25 mg/dL (7-18); Calcium 8.9 mg/dL (8.5-10.1); Carbon Dioxide 34 mmol/L (21-32); Chloride 95 mmol/L (98-107); GFR African American 103 mL/min; GFR Non-African American 85 mL/min; Glucose 120 mg/dL (74-106); Potassium 4.2 mmol/L (3.5-5.1); Sodium 136 mmol/L (136-145); Total Protein 8.1 g/dL (6.4-8.2)
[2017-10-29] MEDS ORDERED: glyBURIDE 5 MG TAB PO SCH (07:00)
[2017-10-29] MEDS ORDERED: HYDR-4683 PO (07:21)
[2017-10-29 09:00] VITALS: BP 113/52
[2017-10-29 09:04] VITALS: BP 140/70
[2017-10-29] MEDS: PANTOPRAZOLE 40 MG TAB PO SCH (12:03)
[2017-10-29] MEDS: ASPirin 81 mg TAB PO SCH (12:03)
[2017-10-29] MEDS: BENAZEPRIL HCL 10 MG TAB PO SCH (12:04)
[2017-10-29] MEDS: FUROSEMIDE 40 MG/4 ML VIAL IV SCH (12:05)
[2017-10-29 12:30] VITALS: BP 123/71
== END 2017-10-29 16:06 | disposition home or self-care (01) | DRG 420 ==
LOC: EDBD 11:00 → ER 11:00 → TELE 11:01 → TELE-CENTR 21:03
PROVIDERS: ADMIT Internal Medicine; ATTEND Internal Medicine
PROC: 5A09357 Assistance with Respiratory Ventilation, Less than 24 Consecutive Hours, Continuous Positive Airway Pressure (ICD-10-PCS; principal; 2017-10-26)
PROC: 5A09357 Assistance with Respiratory Ventilation, Less than 24 Consecutive Hours, Continuous Positive Airway Pressure (ICD-10-PCS; 2017-10-28)
PROC: 5A09357 Assistance with Respiratory Ventilation, Less than 24 Consecutive Hours, Continuous Positive Airway Pressure (ICD-10-PCS; 2017-10-29)
DX: E11.649 Type 2 diabetes mellitus with hypoglycemia without coma (principal); J96.21 Acute and chronic respiratory failure with hypoxia; G93.41 Metabolic encephalopathy; I50.33 Acute on chronic diastolic (congestive) heart failure; E87.4 Mixed disorder of acid-base balance; I27.81 Cor pulmonale (chronic); Z68.43 Body mass index [BMI] 50.0-59.9, adult; Z99.81 Dependence on supplemental oxygen; I13.0 Hypertensive heart and chronic kidney disease with heart failure and stage 1 through stage 4 chronic kidney disease, or unspecified chronic kidney disease; E66.01 Morbid (severe) obesity due to excess calories; E87.5 Hyperkalemia; J44.9 Chronic obstructive pulmonary disease, unspecified; J96.22 Acute and chronic respiratory failure with hypercapnia; E11.22 Type 2 diabetes mellitus with diabetic chronic kidney disease; K21.9 Gastro-esophageal reflux disease without esophagitis; G47.419 Narcolepsy without cataplexy; G47.30 Sleep apnea, unspecified; E11.21 Type 2 diabetes mellitus with diabetic nephropathy; I45.10 Unspecified right bundle-branch block; F32.9 Major depressive disorder, single episode, unspecified; N18.9 Chronic kidney disease, unspecified; Z79.899 Other long term (current) drug therapy; Z22.322 Carrier or suspected carrier of Methicillin resistant Staphylococcus aureus
CPT/HCPCS: 36415; 71045; 80048; 80053; 81001; 82010; 82962; 83036; 83735; 83880; 84484; 85025; 85610; 85730; 87081; 93005; 94640; 94660; 94761; 96374; 97163; J1815

== ENCOUNTER 2018-07-26 13:46 | Inpatient (IN) | payer MEDICAID ==
[~2018-07-26] VITALS: Ht 167.6 cm; Wt 188.3 kg
[~2018-07-26 13:46] MED LIST changes: -BEN10T PO; -BENA20TA14 PO; +ENAL2.5T PO; +FURO20TA PO; -GLY5T PO; -TRAV0.00 EACHEYE
[2018-07-26] MEDS ORDERED: FUROSEMIDE 40 MG/4 ML VIAL ONE (13:48)
[2018-07-26] MEDS ORDERED: FUROSEMIDE 40 MG/4 ML VIAL IV ONE (14:15)
[2018-07-26 14:21] LABS: Eosinophils # (auto) 0.1 uL; Lymphocytes # (auto) 0.9 uL; Monocytes # (auto) 0.8 uL; Platelet Count (auto) 351 10^3/uL (140-450); Red Cell Distribution Width 15.8 % (11.8-14.3)
[2018-07-26 14:22] LABS: Basophils # (auto) 0.1 uL; Basophils % (auto) 0.6 % (0.0-2.0); Eosinophils % (auto) 0.8 % (0.0-7.0); Hematocrit 43.4 % (41.0-53.0); Hemoglobin 13.4 g/dL (13.5-17.5); Mean Corpuscular Hgb Conc. 30.9 g/dL (32.0-36.0); Mean Corpuscular Volume 93.6 fL (80.0-100.0); Monocytes % (auto) 7.1 % (0.0-12.0); Neutrophils # (auto) 9.7 uL; Neutrophils % (auto) 83.5 % (37.0-80.0); Nucleated Red Blood Cells % 0.1 %; Red Blood Cells 4.63 10^6/uL (4.5-5.90); White Blood Cell 11.6 10^3/uL (4.4-10.8)
[2018-07-26 14:30] LABS: Albumin 3.2 g/dL (3.4-5.0); Anion Gap 4 (5-15); Blood Urea Nitrogen 26 mg/dL (7-18); Calcium 8.8 mg/dL (8.5-10.1); Carbon Dioxide 33 mmol/L (21-32); Chloride 97 mmol/L (98-107); Potassium 4.7 mmol/L (3.5-5.1); Sodium 134 mmol/L (136-145)
[2018-07-26 14:38] LABS: Alanine Aminotransferase 27 U/L (16-61); Alkaline Phosphatase 69 U/L (45-117); Aspartate Aminotransferase 19 U/L (15-37); BUN/Creatinine Ratio 20.5; Bilirubin, Total 0.8 mg/dL (0.2-1.0); GFR African American 75 mL/min; GFR Non-African American 62 mL/min; Glucose 114 mg/dL (74-106); Total Protein 8.4 g/dL (6.4-8.2)
[2018-07-26] MEDS ORDERED: cefTRIAXone 1GM/50ML D5W 50 ML IV ONE (15:30)
[2018-07-26] MEDS ORDERED: MORPHINE SULFATE 4 MG/ML SYR/VIAL IV PRN ×2 (15:45)
[2018-07-26] MEDS ORDERED: DOCUSATE SOD 100 MG CAP PO PRN (15:45)
[2018-07-26] MEDS ORDERED: NITROGLYCERIN 0.4 MG SL TAB SL PRN (15:45)
[2018-07-26] MEDS ORDERED: TEMAZEPAM 15 MG CAP PO PRN (15:45)
[2018-07-26] MEDS ORDERED: cloNIDine HCL 0.1 MG TAB PO PRN (15:45)
[2018-07-26] MEDS ORDERED: ONDANSETRON HCL 4 MG/2 ML VIAL IV PRN (15:45)
[2018-07-26] MEDS ORDERED: HYDROcodone-ACET 5/325MG TAB PO PRN (15:45)
[2018-07-26] MEDS ORDERED: ACETAMINOPHEN 325 MG TAB PO PRN (15:45)
[2018-07-26 17:30] VITALS: BP 131/97
[2018-07-26 17:52] LABS: Urine Bacteria FEW /hpf (None Seen); Urine Blood Negative /uL (Negative); Urine Specific Gravity 1.006 (1.001-1.035); Urine WBC 7 /hpf (0 - 3)
[2018-07-26] MEDS: Glucerna Carbsteady SHAKE Vanilla 8oz PO SCH (18:00)
[2018-07-26] MEDS: FUROSEMIDE 40 MG/4 ML VIAL IV SCH (18:38)
[2018-07-26] MEDS: ALBUTEROL SULF 2.5 MG/0.5ML(0.5%) NEB SOLN NEB SCH ×2 (19:11→22:51)
[2018-07-26] MEDS: IPRATROPIUM BROM 0.5 MG/2.5ML INH SOL NEB SCH ×2 (19:11→22:51)
[2018-07-26 19:50] VITALS: BP 126/78
[2018-07-26] MEDS: INSULIN LANTUS (GLARGINE) 1 /0.01ml (100units/ml) SC SCH (22:00)
[2018-07-26] MEDS ORDERED: FAMOTIDINE 20 MG TAB PO SCH (22:00)
[2018-07-26] MEDS: POTASSIUM CHL 10 Meq TABLET PO SCH (22:09)
[2018-07-26] MEDS: METOPROLOL TARTRATE 50 MG TAB PO SCH (22:09)
[2018-07-26] MEDS: CLINDAMYCIN 300MG IV 50 ML IV SCH (22:09)
[2018-07-26] MEDS: ENALAPRIL MALEATE 2.5 MG TAB PO SCH (22:10)
[2018-07-26] MEDS: SODIUM CHLOR 0.9% PF (SALINE LOCK) 10ML VIAL/SYR IV SCH (22:13)
[2018-07-26 23:54] VITALS: BP 107/78
[2018-07-27 00:33] VITALS: BP 107/78
[2018-07-27 04:10] VITALS: BP 115/73
[2018-07-27 05:32] LABS: Basophils # (auto) 0 uL; Eosinophils # (auto) 0.2 uL; Lymphocytes # (auto) 0.8 uL; Lymphocytes % (auto) 9.1 % (10.0-50.0); Nucleated Red Blood Cells % 0.1 %
[2018-07-27 05:33] LABS: Basophils % (auto) 0.4 % (0.0-2.0); Eosinophils % (auto) 2.1 % (0.0-7.0); Hematocrit 39.8 % (41.0-53.0); Hemoglobin 12.4 g/dL (13.5-17.5); Mean Corpuscular Hemoglobin 29.2 pg (28.0-32.0); Mean Corpuscular Hgb Conc. 31.2 g/dL (32.0-36.0); Mean Corpuscular Volume 93.8 fL (80.0-100.0); Monocytes # (auto) 0.8 uL; Monocytes % (auto) 8.3 % (0.0-12.0); Neutrophils # (auto) 7.5 uL; Neutrophils % (auto) 80.1 % (37.0-80.0); Platelet Count (auto) 329 10^3/uL (140-450); Red Blood Cells 4.25 10^6/uL (4.5-5.90); Red Cell Distribution Width 15.8 % (11.8-14.3); White Blood Cell 9.3 10^3/uL (4.4-10.8)
[2018-07-27] MEDS: IPRATROPIUM BROM 0.5 MG/2.5ML INH SOL NEB SCH ×4 (05:57→18:24)
[2018-07-27] MEDS: ALBUTEROL SULF 2.5 MG/0.5ML(0.5%) NEB SOLN NEB SCH ×4 (05:58→18:24)
[2018-07-27 06:01] LABS: Albumin 2.7 g/dL (3.4-5.0); Calcium 8.6 mg/dL (8.5-10.1); Potassium 5.2 mmol/L (3.5-5.1)
[2018-07-27 06:07] LABS: BUN/Creatinine Ratio 24.4; Bilirubin, Total 0.8 mg/dL (0.2-1.0)
[2018-07-27] MEDS: CLINDAMYCIN 300MG IV 50 ML IV SCH (06:25)
[2018-07-27] MEDS: SODIUM CHLOR 0.9% PF (SALINE LOCK) 10ML VIAL/SYR IV SCH ×3 (06:27→21:20)
[2018-07-27] MEDS: FUROSEMIDE 40 MG/4 ML VIAL IV SCH ×2 (06:27→18:47)
[2018-07-27] MEDS: glipiZIDE 5 MG TAB PO SCH (07:00)
[2018-07-27 07:10] VITALS: BP 126/76
[2018-07-27] MEDS: Glucerna Carbsteady SHAKE Vanilla 8oz PO SCH ×3 (08:00→18:19)
[2018-07-27] MEDS: cefTRIAXone 1GM/50ML D5W 50 ML IV SCH (09:25)
[2018-07-27] MEDS: ASPirin-EC 81 mg tab PO SCH (09:26)
[2018-07-27] MEDS: POTASSIUM CHL 10 Meq TABLET PO SCH ×2 (09:26→21:21)
[2018-07-27] MEDS: MULTIPLE VITAMIN TAB PO SCH (09:26)
[2018-07-27] MEDS: PANTOPRAZOLE 40 MG TAB PO SCH (09:26)
[2018-07-27] MEDS: ENALAPRIL MALEATE 2.5 MG TAB PO SCH ×2 (09:27→21:21)
[2018-07-27] MEDS: METOPROLOL TARTRATE 50 MG TAB PO SCH ×3 (09:27→21:21)
[2018-07-27] MEDS: ARMODAFINIL 150 MG TAB PO SCH (09:36)
[2018-07-27] MEDS ORDERED: ENOXAPARIN SOD 40 MG/0.4 ML SYRINGE SC SCH ×2 (10:00)
[2018-07-27] MEDS ORDERED: ENOXAPARIN SOD 120 MG/0.8 ML SYRINGE SC ONE (11:30)
[2018-07-27] MEDS ORDERED: DEXTROSE (50%) 50ML SYRG IV PRN (11:45)
[2018-07-27 12:18] VITALS: BP 134/81
[2018-07-27] MEDS: ACCU-CHEK COMFORT CURVE STRIP VI SCH ×3 (12:29→23:05)
[2018-07-27] MEDS: InsuLIN REG 1unit/0.01ml Soln (100units/ml) SC SCH ×3 (12:30→23:05)
[2018-07-27 16:09] VITALS: BP 141/92
[2018-07-27] MEDS ORDERED: GLYB1TAB PO (19:48)
[2018-07-27] MEDS ORDERED: FURO40TA4 PO (19:48)
[2018-07-27] MEDS ORDERED: METF-370 PO (19:48)
[2018-07-27 20:21] VITALS: BP 145/75
[2018-07-27] MEDS: INSULIN LANTUS (GLARGINE) 1 /0.01ml (100units/ml) SC SCH (21:22)
[2018-07-27] MEDS: ENOXAPARIN SOD 150 MG/1 ML SYRINGE SC SCH (21:22)
[2018-07-28] VITALS (7 sets, daily range): BP systolic 128–144; BP diastolic 32–85
[2018-07-28 05:24] LABS: Hematocrit 41.1 % (41.0-53.0); Hemoglobin 12.7 g/dL (13.5-17.5)
[2018-07-28 05:44] LABS: BUN/Creatinine Ratio 25.5; Calcium 8.8 mg/dL (8.5-10.1); Potassium 5.1 mmol/L (3.5-5.1)
[2018-07-28] MEDS: InsuLIN REG 1unit/0.01ml Soln (100units/ml) SC SCH ×4 (06:00→23:10)
[2018-07-28] MEDS: glipiZIDE 5 MG TAB PO SCH (06:06)
[2018-07-28] MEDS: SODIUM CHLOR 0.9% PF (SALINE LOCK) 10ML VIAL/SYR IV SCH ×3 (06:06→21:40)
[2018-07-28] MEDS: ACCU-CHEK COMFORT CURVE STRIP VI SCH ×4 (06:07→22:45)
[2018-07-28] MEDS: FUROSEMIDE 40 MG/4 ML VIAL IV SCH ×2 (06:12→17:49)
[2018-07-28] MEDS: IPRATROPIUM BROM 0.5 MG/2.5ML INH SOL NEB SCH ×4 (06:53→17:57)
[2018-07-28] MEDS: ALBUTEROL SULF 2.5 MG/0.5ML(0.5%) NEB SOLN NEB SCH ×4 (06:53→17:57)
[2018-07-28] MEDS: Glucerna Carbsteady SHAKE Vanilla 8oz PO SCH ×3 (08:50→17:38)
[2018-07-28] MEDS: POTASSIUM CHL 10 Meq TABLET PO SCH ×2 (10:00→21:43)
[2018-07-28] MEDS: MULTIPLE VITAMIN TAB PO SCH (10:44)
[2018-07-28] MEDS: ARMODAFINIL 150 MG TAB PO SCH (10:44)
[2018-07-28] MEDS: ENOXAPARIN SOD 150 MG/1 ML SYRINGE SC SCH (10:44)
[2018-07-28] MEDS: cefTRIAXone 1GM/50ML D5W 50 ML IV SCH (10:44)
[2018-07-28] MEDS: ASPirin-EC 81 mg tab PO SCH (10:44)
[2018-07-28] MEDS: PANTOPRAZOLE 40 MG TAB PO SCH (10:45)
[2018-07-28] MEDS: METOPROLOL TARTRATE 50 MG TAB PO SCH ×2 (10:46→21:44)
[2018-07-28] MEDS: ENALAPRIL MALEATE 2.5 MG TAB PO SCH ×2 (10:47→21:44)
[2018-07-28 13:33] LABS: Basophils # (auto) 0.1 uL; Eosinophils # (auto) 0.2 uL; Mean Corpuscular Volume 93.4 fL (80.0-100.0)
[2018-07-28 13:34] LABS: Basophils % (auto) 0.6 % (0.0-2.0); Eosinophils % (auto) 2.1 % (0.0-7.0); Hematocrit 41.4 % (41.0-53.0); Hemoglobin 12.6 g/dL (13.5-17.5); Lymphocytes # (auto) 1.1 uL; Lymphocytes % (auto) 9.6 % (10.0-50.0); Mean Corpuscular Hemoglobin 28.5 pg (28.0-32.0); Mean Corpuscular Hgb Conc. 30.5 g/dL (32.0-36.0); Monocytes # (auto) 1.1 uL; Monocytes % (auto) 9.9 % (0.0-12.0); Neutrophils % (auto) 77.8 % (37.0-80.0); Nucleated Red Blood Cells % 0.1 %; Platelet Count (auto) 345 10^3/uL (140-450); Red Blood Cells 4.44 10^6/uL (4.5-5.90); Red Cell Distribution Width 15.7 % (11.8-14.3); White Blood Cell 11.6 10^3/uL (4.4-10.8)
[2018-07-28] MEDS: CLINDAMYCIN HCL 150 MG CAP PO SCH ×2 (18:07→22:45)
[2018-07-28] MEDS: SULFAMETHOX W/TRIMETH(800/160MG) DS TAB PO SCH (21:40)
[2018-07-28] MEDS: INSULIN LANTUS (GLARGINE) 1 /0.01ml (100units/ml) SC SCH (21:44)
[2018-07-29] VITALS: BP 120/74
[2018-07-29 04:00] VITALS: BP 103/79
[2018-07-29] MEDS: InsuLIN REG 1unit/0.01ml Soln (100units/ml) SC SCH ×2 (06:00→12:13)
[2018-07-29] MEDS: ALBUTEROL SULF 2.5 MG/0.5ML(0.5%) NEB SOLN NEB SCH ×3 (06:03→13:32)
[2018-07-29] MEDS: IPRATROPIUM BROM 0.5 MG/2.5ML INH SOL NEB SCH ×3 (06:03→13:32)
[2018-07-29] MEDS: glipiZIDE 5 MG TAB PO SCH (06:23)
[2018-07-29] MEDS: ACCU-CHEK COMFORT CURVE STRIP VI SCH ×2 (06:23→12:13)
[2018-07-29] MEDS: SODIUM CHLOR 0.9% PF (SALINE LOCK) 10ML VIAL/SYR IV SCH ×2 (06:24→13:39)
[2018-07-29] MEDS: FUROSEMIDE 40 MG/4 ML VIAL IV SCH (06:25)
[2018-07-29] MEDS: CLINDAMYCIN HCL 150 MG CAP PO SCH ×2 (06:25→12:12)
[2018-07-29 08:00] VITALS: BP 136/80
[2018-07-29] MEDS: Glucerna Carbsteady SHAKE Vanilla 8oz PO SCH ×2 (09:35→12:13)
[2018-07-29] MEDS: MULTIPLE VITAMIN TAB PO SCH (09:58)
[2018-07-29] MEDS: POTASSIUM CHL 10 Meq TABLET PO SCH (09:59)
[2018-07-29] MEDS: PANTOPRAZOLE 40 MG TAB PO SCH (09:59)
[2018-07-29] MEDS: ASPirin-EC 81 mg tab PO SCH (09:59)
[2018-07-29] MEDS ORDERED: LEVOFLOXACIN 500 MG TAB PO SCH (10:00)
[2018-07-29] MEDS ORDERED: ENOXAPARIN SOD 40 MG/0.4 ML SYRINGE SC SCH (10:00)
[2018-07-29] MEDS: ENALAPRIL MALEATE 2.5 MG TAB PO SCH (10:01)
[2018-07-29] MEDS: METOPROLOL TARTRATE 50 MG TAB PO SCH (10:01)
[2018-07-29] MEDS: ARMODAFINIL 150 MG TAB PO SCH (10:07)
[2018-07-29] MEDS: SULFAMETHOX W/TRIMETH(800/160MG) DS TAB PO SCH (10:07)
[2018-07-29 11:50] VITALS: BP 106/62
[2018-07-29 13:15] VITALS: BP 106/62
== END 2018-07-29 16:10 | disposition home or self-care (01) | DRG 140 ==
LOC: EDBD 13:46 → ER 13:49 → OVERFLOW 15:33 → DOU IN ICU 17:36
PROVIDERS: ADMIT Internal Medicine; ATTEND Internal Medicine Pulmonary Disease
PROC: 5A09457 Assistance with Respiratory Ventilation, 24-96 Consecutive Hours, Continuous Positive Airway Pressure (ICD-10-PCS; 2018-07-26)
PROC: 5A09357 Assistance with Respiratory Ventilation, Less than 24 Consecutive Hours, Continuous Positive Airway Pressure (ICD-10-PCS; 2018-07-27)
PROC: 5A09357 Assistance with Respiratory Ventilation, Less than 24 Consecutive Hours, Continuous Positive Airway Pressure (ICD-10-PCS; 2018-07-28)
PROC: 5A09357 Assistance with Respiratory Ventilation, Less than 24 Consecutive Hours, Continuous Positive Airway Pressure (ICD-10-PCS; principal; 2018-07-29)
DX: J44.1 Chronic obstructive pulmonary disease with (acute) exacerbation (principal); J96.21 Acute and chronic respiratory failure with hypoxia; I50.43 Acute on chronic combined systolic (congestive) and diastolic (congestive) heart failure; E44.0 Moderate protein-calorie malnutrition; I27.81 Cor pulmonale (chronic); E11.21 Type 2 diabetes mellitus with diabetic nephropathy; E11.65 Type 2 diabetes mellitus with hyperglycemia; L03.115 Cellulitis of right lower limb; E87.1 Hypo-osmolality and hyponatremia; E87.8 Other disorders of electrolyte and fluid balance, not elsewhere classified; N39.0 Urinary tract infection, site not specified; E66.2 Morbid (severe) obesity with alveolar hypoventilation; L03.116 Cellulitis of left lower limb; F32.9 Major depressive disorder, single episode, unspecified; D63.8 Anemia in other chronic diseases classified elsewhere; E03.9 Hypothyroidism, unspecified; E11.22 Type 2 diabetes mellitus with diabetic chronic kidney disease; I13.0 Hypertensive heart and chronic kidney disease with heart failure and stage 1 through stage 4 chronic kidney disease, or unspecified chronic kidney disease; J96.22 Acute and chronic respiratory failure with hypercapnia; K21.9 Gastro-esophageal reflux disease without esophagitis; N18.2 Chronic kidney disease, stage 2 (mild); Z68.44 Body mass index [BMI] 60.0-69.9, adult
CPT/HCPCS: 36415; 36600; 71045; 80048; 80053; 81001; 82805; 82962; 83036; 83605; 83735; 83880; 84443; 84484; 85014; 85018; 85025; 87040; 87070; 87077; 87081; 87086; 87088; 87186; 87205; 93005; 93306; 93971; 94640; 94660; 96365; 96367; 96375; 99291; G0378; J0696; J1815; J3490

== ENCOUNTER 2020-01-12 09:46 | Inpatient (IN) | payer MEDICAID ==
[~2020-01-12] VITALS: Ht 167.6 cm; Wt 105.7 kg
[~2020-01-12 09:46] MED LIST changes: -FURO20TA PO; +FURO40TA4 PO; +GLYB2.5T14 PO; -HYDR-4683 PO; +HYDR-4833 PO; +METF-370 PO
[2020-01-12] MEDS ORDERED: SODIUM CHLORIDE 0.9% 1,000 ML IV ONE (10:17)
[2020-01-12] MEDS ORDERED: PIPERACILLIN-TAZOB 3.375GM 100 ML IV ONE (10:30)
[2020-01-12 10:33] LABS: Basophils # (auto) 0.1 10 ^3/uL (0-0.2); Basophils % (auto) 1.1 % (0.0-2.0); Eosinophils # (auto) 0.1 10 ^3/uL (0-0.8); Eosinophils % (auto) 0.9 % (0.0-7.0); Hematocrit 39.5 % (41.0-53.0); Hemoglobin 12.9 g/dL (13.5-17.5); Lymphocytes % (auto) 8.6 % (10.0-50.0); Mean Corpuscular Hgb Conc. 32.7 g/dL (32.0-36.0); Mean Corpuscular Volume 97.9 fL (80.0-100.0); Monocytes # (auto) 0.9 10 ^3/uL (0-1.3); Monocytes % (auto) 7.2 % (0.0-12.0); Neutrophils # (auto) 9.9 10 ^3/uL (1.6-8.6); Neutrophils % (auto) 82.2 % (37.0-80.0); Platelet Count (auto) 303 10^3/uL (140-450); Red Blood Cells 4.04 10^6/uL (4.5-5.90); Red Cell Distribution Width 14.6 % (11.8-14.3)
[2020-01-12 10:44] LABS: INR 1.07 (0.9-1.15); Partial Thromboplastin Time 35.1 sec (23.64-32.05)
[2020-01-12 11:03] LABS: BUN/Creatinine Ratio 22.4; Bilirubin, Total 0.8 mg/dL (0.2-1.0); Calcium 9.1 mg/dL (8.5-10.1); Potassium 4.8 mmol/L (3.5-5.1)
[2020-01-12] MEDS ORDERED: IOHEXOL 350 MG/ML 100ML IJ ONE (13:18)
[2020-01-12] MEDS ORDERED: FUROSEMIDE 40 MG/4 ML VIAL IV ONE (14:30)
[2020-01-12] MEDS ORDERED: MORPHINE SULF INJ 2 MG/ML SYRINGE 1ML IV PRN (14:45)
[2020-01-12] MEDS ORDERED: NITROGLYCERIN 0.4 MG SL TAB SL PRN (14:45)
[2020-01-12] MEDS ORDERED: ALBUTEROL SULF 2.5 MG/0.5ML(0.5%) NEB SOLN NEB PRN (15:00)
[2020-01-12] MEDS ORDERED: CLINDAMYCIN 900MG IV 50 ML IV ONE (15:00)
[2020-01-12] MEDS ORDERED: levoFLOXacin 500MG 100 ML IV ONE (15:00)
[2020-01-12] MEDS ORDERED: TEMAZEPAM 15 MG CAP PO PRN (15:00)
[2020-01-12] MEDS ORDERED: ACETAMINOPHEN 500 MG TAB PO PRN (15:00)
[2020-01-12] MEDS ORDERED: DEXTROSE (50%) 50ML SYRG IV PRN (15:00)
[2020-01-12] MEDS ORDERED: THIAMINE 100mg/ml INJ (200mg/2ml VIAL) IV ONE (16:15)
[2020-01-12] MEDS ORDERED: chlordiazePOXIDE HCL 25 MG CAP PO PRN (16:15)
[2020-01-12] MEDS: ACCU-CHEK COMFORT CURVE STRIP VI SCH ×2 (17:00→22:22)
[2020-01-12] MEDS: MORPHINE SULF INJ 2 MG/ML SYRINGE 1ML IV PRN ×2 (17:28→22:23)
[2020-01-12] MEDS: chlordiazePOXIDE HCL 5 MG CAP PO SCH (17:42)
[2020-01-12] MEDS ORDERED: FUROSEMIDE 100 MG/10ML VIAL IV ONE (17:45)
[2020-01-12] MEDS: INSULIN LANTUS (GLARGINE) 1 /0.01ml (100units/ml) SC SCH (17:46)
[2020-01-12] MEDS: InsuLIN REG 1unit/0.01ml Soln (100units/ml) SC SCH ×2 (17:47→22:22)
--- NOTE | 2020-01-12 17:50 | NUR ---
Respiratory note: ASSESSED PT FOR PRN TX PT WAS AWAKE AND ALERT, NO RESP DISTRESS NOTED. HR 99, RR 16, SPO2 97% ON 2L N/C. BS ARE CLEAR AND DIMINISHED, NO INDICATION FOR TX AT THIS TIME. PATIENT KNOWS TO HAVE RT PAGED IF TX IS NEEDED.
[2020-01-12] MEDS ORDERED: INSULIN GLARGINE 17 UNIT SUBCUT SCH (18:00)
--- NOTE | 2020-01-12 19:00 | NUR ---
Opening Shift Note Assumed care of patient, awake and alert. No S/S of distress/SOB. patient states that he has pain in his right leg, stemming from his knee down him foot. Instructed on POC and to call for assist PRN, will continue to monitor for changes Q1hr and PRN. Patient in the lowest possible position with bed rails up x2 and call light within reach. Will continue to monitor.
[2020-01-12 19:22] VITALS: BP 131/61
[2020-01-12 19:53] VITALS: BP 131/61
[2020-01-12 20:00] VITALS: BP 142/69
--- NOTE | 2020-01-12 20:42 | NUR ---
Abnormal Rhythm Got a call from the Telemetry room about the patient's rhythm. She stated he has been running sinus tach since reaching the floor but he had a run of PVC and a luis. The patient's EKG on the monitor looked similar to the one from the ER. The patient was stable, stated he was trying to adjust in bed to eat dinner. Will continue to monitor.
--- NOTE | 2020-01-12 20:45 | NUR ---
IV removal IV DC'd with clean sterile technique, catheter fully intact. Pressure dressing applied to site. Patient tolerated well. Addendum: 01/13/20 at 0033 by Clarice Chirinos RN Patients IV was infiltrated, and IV was removed. Ice pack was applied to the area. Swelling noted, will continue to monitor for it to go down.
--- NOTE | 2020-01-12 20:48 | NUR ---
IV insertion IV access obtained, via clean sterile technique by inserting 22 gauge catheter at the right arm after 2 attempts. IV secured properly. No trauma to site. Patient tolerated well.
[2020-01-12 22:00] VITALS: BP 142/69
[2020-01-12] MEDS ORDERED: FAMOTIDINE 20 MG TAB PO SCH (22:00)
--- NOTE | 2020-01-12 22:00 | NUR ---
Original weight read 170 kg, when weighed again, scale read 110kg, redid the weight and read 108 kg. Going to read as 110kg. Will reassess in the morning.
[2020-01-12] MEDS: METOPROLOL TARTRATE 50 MG TAB PO SCH (22:21)
[2020-01-12] MEDS: CLINDAMYCIN 600MG IV 50 ML IV SCH (22:21)
[2020-01-12] MEDS: ENALAPRIL MALEATE 2.5 MG TAB PO SCH (22:22)
--- NOTE | 2020-01-12 23:00 | NUR ---
Swelling has gone down from infiltrated IV site. Will continue to monitor, patient stated that the pain from the swelling is no longer there.
[2020-01-13] VITALS (7 sets, daily range): BP systolic 105–124; BP diastolic 61–82
[2020-01-13] MEDS: chlordiazePOXIDE HCL 5 MG CAP PO SCH ×4 (00:02→18:43)
--- NOTE | 2020-01-13 04:15 | NUR ---
Patient is complaining of pain going up to his right knee. Patient is admitted for cellulitis of the right foot. Will endorse to day shift to talk to MD about patients complaints. Patient unable to put weight on the right leg at this time.
[2020-01-13] MEDS: MORPHINE SULF INJ 2 MG/ML SYRINGE 1ML IV PRN ×4 (04:29→21:43)
[2020-01-13] MEDS: CLINDAMYCIN 600MG IV 50 ML IV SCH ×3 (06:30→21:41)
[2020-01-13] MEDS: ACCU-CHEK COMFORT CURVE STRIP VI SCH ×4 (06:37→21:43)
[2020-01-13] MEDS: InsuLIN REG 1unit/0.01ml Soln (100units/ml) SC SCH ×4 (06:43→21:44)
--- NOTE | 2020-01-13 06:51 | NUR ---
PT ASSESSED FOR PRN HHN TX. PT IS ON 2LNC, SPO2 94%, HR 92, RR 18. NO S/S OF RESPIRATORY DISTRESS. LUNGS ARE CLEAR. PRN TX NOT INDICATED; WILL CONTINUE TO MONITOR.
[2020-01-13 07:37] LABS: Basophils # (auto) 0.1 10 ^3/uL (0-0.2); Basophils % (auto) 0.7 % (0.0-2.0); Eosinophils # (auto) 0.1 10 ^3/uL (0-0.8); Eosinophils % (auto) 0.9 % (0.0-7.0); Hematocrit 38.8 % (41.0-53.0); Hemoglobin 12.8 g/dL (13.5-17.5); Lymphocytes # (auto) 1.2 10 ^3/uL (0.4-5.4); Lymphocytes % (auto) 9.8 % (10.0-50.0); Mean Corpuscular Hemoglobin 32.1 pg (28.0-32.0); Mean Corpuscular Volume 97.3 fL (80.0-100.0); Monocytes # (auto) 0.9 10 ^3/uL (0-1.3); Monocytes % (auto) 7.5 % (0.0-12.0); Neutrophils # (auto) 9.9 10 ^3/uL (1.6-8.6); Neutrophils % (auto) 81.1 % (37.0-80.0); Platelet Count (auto) 307 10^3/uL (140-450); Red Blood Cells 3.99 10^6/uL (4.5-5.90); Red Cell Distribution Width 14.8 % (11.8-14.3); White Blood Cell 12.2 10^3/uL (4.4-10.8)
[2020-01-13 08:00] LABS: Alanine Aminotransferase 13 U/L (16-61); Albumin 2.7 g/dL (3.4-5.0); Anion Gap 9 (5-15); Aspartate Aminotransferase 8 U/L (15-37); Blood Urea Nitrogen 20 mg/dL (7-18); Calcium 8.7 mg/dL (8.5-10.1); Carbon Dioxide 29 mmol/L (21-32); Chloride 101 mmol/L (98-107); Glucose 141 mg/dL (74-106); Potassium 4.2 mmol/L (3.5-5.1); Sodium 139 mmol/L (136-145)
[2020-01-13 08:04] LABS: Alkaline Phosphatase 46 U/L (45-117); BUN/Creatinine Ratio 19.8; Bilirubin, Total 0.8 mg/dL (0.2-1.0); GFR African American 97 mL/min; GFR Non-African American 80 mL/min; Total Protein 7.6 g/dL (6.4-8.2)
--- NOTE | 2020-01-13 08:20 | NUR ---
Opening Shift Note Assumed care of patient, patient is comfortably resting in bed, on room air, breath sounds even and unlabored. No S/S of distress/SOB or pain. Bed at lowest locked position and call light withinreach. Instructed on POC and to call for assist PRN, will continue to monitor for changes Q1hr and PRN. Addendum: 01/13/20 at 0850 by Krupa Weems RN *08:20 patient currently on [facility].
[2020-01-13] MEDS ORDERED: FUROSEMIDE 100 MG/10ML VIAL IV SCH (10:00)
[2020-01-13] MEDS: Armodafinil (Nuvigil) 150 MG PO SCH (10:00)
[2020-01-13] MEDS: THIAMINE 100mg/ml INJ (200mg/2ml VIAL) IV SCH (10:00)
[2020-01-13] MEDS ORDERED: POTASSIUM CHL 20 Meq TABLET PO SCH (10:00)
[2020-01-13] MEDS: METOPROLOL TARTRATE 50 MG TAB PO SCH ×2 (10:00→21:41)
[2020-01-13] MEDS ORDERED: ENALAPRIL MALEATE 2.5 MG TAB PO SCH (10:00)
[2020-01-13] MEDS: ENALAPRIL MALEATE 2.5 MG TAB PO SCH (10:00)
[2020-01-13] MEDS: ENOXAPARIN SOD 40 MG/0.4 ML SYRINGE SC SCH (10:19)
[2020-01-13] MEDS: ASPirin 81 mg TAB PO SCH (10:19)
[2020-01-13] MEDS: PANTOPRAZOLE 40 MG TAB PO SCH (10:20)
[2020-01-13] MEDS: levoFLOXacin 500MG 100 ML IV SCH (10:21)
--- NOTE | 2020-01-13 11:10 | NUR ---
WOUND CARE NOTE: Wound care in to see patient per wound care request regarding low Theodore score of 12 and skin integrity issue that are noted present on admission. Bedside nurse took photograph of patient's wound wound admission for reference. Patient is 59 years old male admitted for R Foot Cellulitis. Patient with history of htn, DM, poss CHF. Patient is resting in bed in Rm. 271A. Patient is awake,alert and oriented. He's able to assist in turning and repositioning. His current Theodore score is 15. Patient's RLE noted with mild edema and erythema. Patient is obese and has deep intragluteal fold, reports of urinary incontinence. Patient's medial intragluteal fold noted with 4x0.5cm open partial thickness skin tear. Wound is red with pink galindo wound, no drainage/odor noted. Cleansed patient's buttocks with mild soap and water, patted dry and applied Z Guard cream. Patient tolerated well. No other wound noted. RECOMMENDATION: Nursing to continue with BID/PRN cleaning and application of Z Guard cream to sacral, buttocks per MD order, Dietary consult for wound and obesity, frequent turning and repositioning schedule as condition permits, redistribute pressure points with pillows,elevate edematous extremity on pillows, keep clean and dry,continue monitoring by wound care while patient is hospitalized. Addendum: 01/13/20 at 1318 by Johanna Almonte RN Amended: Links added.
--- NOTE | 2020-01-13 13:36 | NUR ---
Nutrition Assessment Notes Please refer to link for full assessment notes. Est energy needs: 9932-7554 kcals (14-18 kcal/kgBW) Est protein needs: 61-76 gms/day (0.8-1.0 gm/kgAdjBW) Will continue to monitor and reassess prn. Addendum: 01/13/20 at [address] Amended: Links added.
--- NOTE | 2020-01-13 14:34 | NUR ---
Dr. Huff at bedside.
[2020-01-13] MEDS ORDERED: HYDR-4798 PO (14:48)
[2020-01-13] MEDS ORDERED: ALBUAER3 IN (15:04)
[2020-01-13] MEDS ORDERED: METO-159 PO (15:06)
[2020-01-13] MEDS ORDERED: INSU1INJ19 SC (15:09)
[2020-01-13] MEDS ORDERED: THYR60TA PO (15:11)
[2020-01-13] MEDS ORDERED: LATA0.0019 EACHEYE (15:11)
[2020-01-13] MEDS ORDERED: SENN1TAB14 PO (15:12)
[2020-01-13] MEDS ORDERED: CANA100T PO (15:13)
[2020-01-13] MEDS ORDERED: DOCU-94 PO (15:14)
[2020-01-13] MEDS ORDERED: CHOL20007 PO (15:14)
[2020-01-13] MEDS ORDERED: SEMA2INJ SC (15:26)
[2020-01-13] MEDS ORDERED: MYC15TP TOP (15:28)
[2020-01-13] MEDS ORDERED: [UNRECOGNIZED DRUG - CODE] EX (15:28)
[2020-01-13] MEDS: INSULIN LANTUS (GLARGINE) 1 /0.01ml (100units/ml) SC SCH (18:00)
--- NOTE | 2020-01-13 18:35 | NUR ---
RT NOTE: PT ASSESSED FOR PRN MED NEB TX, PT DENIES SOB AND NO RESPIRATORY DISTRESS NOTED AT THIS TIME. PT ON 2LPM NC SPO2 95%. NO TX INDICATED AT THIS TIME.
--- NOTE | 2020-01-13 19:00 | NUR ---
Opening Shift Note Assumed care of patient, awake and alert. No S/S of distress/SOB, patient does state that his nostrils are a little dry. Patient complains of pain in his right knee post sample being taken out from today. Instructed on POC and to call for assist PRN, will continue to monitor for changes Q1hr and PRN. patient in lowest possible position with bed rails up x2 and call light within reach.
--- NOTE | 2020-01-13 19:19 | NUR ---
CLOSING SHIFT Patient is comfortably resting in bed, on 2L NC, breath sounds even and unlabored. No c/o pain, no s/s of distress noted/stated. Bed at lowest locked position and call light within reach. Care endorsed to BRICE Oneil RN.
[2020-01-13] MEDS: MUPIROCIN 2% OINT 15gm or 22gm EACHNOSTRI SCH (21:40)
[2020-01-13] MEDS: ENALAPRIL MALEATE 10 MG TAB PO SCH (21:42)
--- NOTE | 2020-01-13 22:46 | NUR ---
Patient complains of pain of over 10 on his right leg, patient states it hurts when he moves it in any way. Will continue to monitor. Patient is sleeping at this time.
[2020-01-14] VITALS (7 sets, daily range): BP systolic 99–140; BP diastolic 56–82
[2020-01-14] MEDS: chlordiazePOXIDE HCL 5 MG CAP PO SCH ×5 (00:20→23:42)
--- NOTE | 2020-01-14 03:09 | NUR ---
Patient tried to have a bowel movement, only farted. Patient stated that he is uncomfortable and would like something to be able to poop. Will notify MD for order.
[2020-01-14 05:12] LABS: Basophils # (auto) 0.1 10 ^3/uL (0-0.2); Basophils % (auto) 0.7 % (0.0-2.0); Eosinophils # (auto) 0.2 10 ^3/uL (0-0.8); Eosinophils % (auto) 1.3 % (0.0-7.0); Hematocrit 39.1 % (41.0-53.0); Lymphocytes # (auto) 1.2 10 ^3/uL (0.4-5.4); Lymphocytes % (auto) 9.7 % (10.0-50.0); Mean Corpuscular Hemoglobin 32.5 pg (28.0-32.0); Mean Corpuscular Hgb Conc. 33.2 g/dL (32.0-36.0); Mean Corpuscular Volume 97.7 fL (80.0-100.0); Monocytes % (auto) 8.3 % (0.0-12.0); Neutrophils # (auto) 9.6 10 ^3/uL (1.6-8.6); Platelet Count (auto) 328 10^3/uL (140-450); Red Cell Distribution Width 14.8 % (11.8-14.3)
[2020-01-14 05:30] LABS: BUN/Creatinine Ratio 19.5; Calcium 8.9 mg/dL (8.5-10.1); Magnesium 2.1 mg/dL (1.6-2.6); Potassium 4.6 mmol/L (3.5-5.1)
[2020-01-14] MEDS: CLINDAMYCIN 600MG IV 50 ML IV SCH ×3 (06:16→21:43)
[2020-01-14] MEDS: ACCU-CHEK COMFORT CURVE STRIP VI SCH ×4 (06:16→21:55)
[2020-01-14] MEDS: InsuLIN REG 1unit/0.01ml Soln (100units/ml) SC SCH ×4 (06:22→21:55)
--- NOTE | 2020-01-14 06:51 | NUR ---
Closing note Patient asleep, in the lowest possible position with bed rails up x2 and call light within reach. Will endorse to day shift RN. Patient does not have a curtain, called EVS for a curtain to be put in the room.
[2020-01-14] MEDS: MUPIROCIN 2% OINT 15gm or 22gm EACHNOSTRI SCH ×2 (09:07→21:44)
[2020-01-14] MEDS: PANTOPRAZOLE 40 MG TAB PO SCH (09:08)
[2020-01-14] MEDS: levoFLOXacin 500MG 100 ML IV SCH (09:08)
[2020-01-14] MEDS: traMADol HCL 50 MG TAB PO PRN ×2 (09:08→20:18)
[2020-01-14] MEDS: ASPirin 81 mg TAB PO SCH (09:08)
[2020-01-14] MEDS: Armodafinil (Nuvigil) 150 MG PO SCH (09:44)
[2020-01-14] MEDS: THIAMINE 100mg/ml INJ (200mg/2ml VIAL) IV SCH (09:44)
[2020-01-14] MEDS: METOPROLOL TARTRATE 50 MG TAB PO SCH ×3 (09:45→21:43)
[2020-01-14] MEDS: FUROSEMIDE 40 MG TAB PO SCH (09:45)
[2020-01-14] MEDS: ENALAPRIL MALEATE 10 MG TAB PO SCH ×2 (09:46→21:44)
[2020-01-14] MEDS: ENOXAPARIN SOD 40 MG/0.4 ML SYRINGE SC SCH (09:46)
[2020-01-14] MEDS ORDERED: FUROSEMIDE 20 MG/2 ML VIAL IV SCH (10:00)
[2020-01-14] MEDS: MORPHINE SULF INJ 2 MG/ML SYRINGE 1ML IV PRN (11:50)
--- NOTE | 2020-01-14 11:55 | NUR ---
Patient c/o right leg pain, 07/07. No s/s of distress/sob noted/stated. Will medicate per MD orders.
--- NOTE | 2020-01-14 17:43 | NUR ---
URINE SPECIMEN COLLECTED/SENT URINE SPECIMEN TO LAB VIA [facility] SYSTEM.
[2020-01-14] MEDS: INSULIN LANTUS (GLARGINE) 1 /0.01ml (100units/ml) SC SCH (17:46)
[2020-01-14 18:41] LABS: Urine Bacteria NONE SEEN /hpf (None Seen); Urine Blood TRACE /uL (Negative); Urine Specific Gravity 1.017 (1.001-1.035); Urine WBC 9 /hpf (0 - 3)
[2020-01-14 18:43] LABS: Alcohol, Urine < 3.0 mg/dL (0-5); Amphetamine Screen, Urine NEGATIVE (NEGATIVE); Barbiturate Scree,Urine NEGATIVE (NEGATIVE); Benzodiazephine Screen, Urine POSITIVE (NEGATIVE); Cannabinoid Screen, Urine NEGATIVE (NEGATIVE); Cocaine Screen, Urine NEGATIVE (NEGATIVE); Opiate Scree,Urine POSITIVE (NEGATIVE); Phencyclidine Screen, Urine NEGATIVE (NEGATIVE)
--- NOTE | 2020-01-14 19:20 | NUR ---
Respiratory note: NO PRN TX GIVEN AT THIS TIME, NOT INDICATED, NO SOB NOTED. PT IS ON 2L NC, SPO2 96%, HR 72, RR 16. PT AWAKE AND ALERT, DENIES ANY NEEDS.
--- NOTE | 2020-01-14 19:23 | NUR ---
Closing note Patient comfortably sleeping on 2 L NC. No c/o pain. No s/s of distress/sob noted. Bed at lowest locked position and call light within reach. Care endorsed to Clara NYE.
[2020-01-14] MEDS ORDERED: DOCUSATE SOD 100 MG CAP PO PRN (19:30)
--- NOTE | 2020-01-14 19:40 | NUR ---
Opening Shift Note Assumed care of patient, awake and alert. No S/S of distress/SOB. Pain 6/10 aching pain to his knees bilaterally. will medicate per protocol.. Instructed on POC and to call for assist PRN, will continue to monitor for changes Q1hr and PRN. fall precautions in place. call light within reach
--- NOTE | 2020-01-14 20:18 | NUR ---
patient medicated for 6/10 pain. see emar
--- NOTE | 2020-01-14 20:18 | NUR ---
barrier cream applied to patient per md orders.patient tolerated well.
--- NOTE | 2020-01-14 21:18 | NUR ---
pain reassessment patient reports 3/10 tolerable level
[2020-01-14] MEDS: PROMETHAZINE HCL 25 MG/ML 1ML IV PRN (21:55)
--- NOTE | 2020-01-14 23:00 | NUR ---
PATIENT REPORTS VOMITING. pATIENT REPORTS NAUSEAS DUE TO DINNER HE HAD TODAY.WILL MEDICATE PER PROTOCOL PATIENT PROVIDED WITH BAG TO VOMIT. PATIENT INFORMED TO MAINTAIN HOB ELEVATED TO PREVENT ASPIRATION. . PATIENT VERBALIZED UNDERSTANDING. NEW TELE LEAD APPLIED. PATIENT DENIES SOB DISTRESS OR PAIN. FALL PRECAUTIONS IN PLACE
--- NOTE | 2020-01-14 23:05 | NUR ---
VITALS ASSESSED B/P 133/90, HEAR RAT 87BPM, 95 02SATURATION VIA NASAL CANNULA 2 L. REPORTS NO DISTRESS SOB OR PAIN
[2020-01-15] VITALS (7 sets, daily range): BP systolic 108–145; BP diastolic 60–81
[2020-01-15] MEDS: PROMETHAZINE HCL 25 MG/ML 1ML IV PRN (04:09)
[2020-01-15 05:58] LABS: Basophils # (auto) 0.1 10 ^3/uL (0-0.2); Basophils % (auto) 0.7 % (0.0-2.0); Eosinophils # (auto) 0 10 ^3/uL (0-0.8); Eosinophils % (auto) 0.1 % (0.0-7.0); Hematocrit 41.2 % (41.0-53.0); Hemoglobin 13.9 g/dL (13.5-17.5); Lymphocytes # (auto) 1.1 10 ^3/uL (0.4-5.4); Lymphocytes % (auto) 6.7 % (10.0-50.0); Mean Corpuscular Hemoglobin 32.8 pg (28.0-32.0); Mean Corpuscular Hgb Conc. 33.7 g/dL (32.0-36.0); Mean Corpuscular Volume 97.5 fL (80.0-100.0); Monocytes # (auto) 1.3 10 ^3/uL (0-1.3); Monocytes % (auto) 7.8 % (0.0-12.0); Neutrophils # (auto) 14.4 10 ^3/uL (1.6-8.6); Neutrophils % (auto) 84.7 % (37.0-80.0); Platelet Count (auto) 367 10^3/uL (140-450); Red Blood Cells 4.23 10^6/uL (4.5-5.90); Red Cell Distribution Width 14.1 % (11.8-14.3); White Blood Cell 17.1 10^3/uL (4.4-10.8)
[2020-01-15 06:18] LABS: Calcium 9.2 mg/dL (8.5-10.1); Potassium 4.4 mmol/L (3.5-5.1)
[2020-01-15 06:21] LABS: BUN/Creatinine Ratio 16.7
[2020-01-15] MEDS: CLINDAMYCIN 600MG IV 50 ML IV SCH ×3 (06:51→21:53)
[2020-01-15] MEDS: chlordiazePOXIDE HCL 5 MG CAP PO SCH ×4 (06:51→23:30)
[2020-01-15] MEDS: InsuLIN REG 1unit/0.01ml Soln (100units/ml) SC SCH ×4 (07:00→22:11)
[2020-01-15] MEDS: ACCU-CHEK COMFORT CURVE STRIP VI SCH ×4 (07:00→22:05)
--- NOTE | 2020-01-15 07:27 | NUR ---
Respiratory note: PT ASSESSED FOR PRN TX. PT AWAKE, ALERT AND RESPONSIVE. PT FOUND ON 2 LPM NC. HR 63, RR 18, SP02 95%. B/S ARE DIMINISHED. NO TREATMENT INDICATED AT THIS TIME.
--- NOTE | 2020-01-15 07:31 | NUR ---
REPORT GIVEN TO DAYSHIFT RN PATIENT DENIES SOB DISTRESS OR PAIN. FALL PRECAUTIONS IN PLACE
--- NOTE | 2020-01-15 08:14 | NUR ---
Opening Shift Note Assumed care of patient, comfortably sleeping in bed, with 2L NC. Breath sounds even and unlabored. No S/S of distress/SOB or pain noted. Bed at lowest locked position and call light within reach will continue to monitor for changes Q1hr and PRN.
[2020-01-15] MEDS: ENOXAPARIN SOD 40 MG/0.4 ML SYRINGE SC SCH (09:33)
[2020-01-15] MEDS: FUROSEMIDE 40 MG TAB PO SCH (09:34)
[2020-01-15] MEDS: METOPROLOL TARTRATE 50 MG TAB PO SCH ×2 (09:34→22:01)
[2020-01-15] MEDS: MORPHINE SULF INJ 2 MG/ML SYRINGE 1ML IV PRN ×2 (09:34→17:50)
[2020-01-15] MEDS: PANTOPRAZOLE 40 MG TAB PO SCH (09:35)
[2020-01-15] MEDS: levoFLOXacin 500MG 100 ML IV SCH (09:35)
[2020-01-15] MEDS: ASPirin 81 mg TAB PO SCH (09:35)
[2020-01-15] MEDS: ENALAPRIL MALEATE 10 MG TAB PO SCH ×2 (09:35→22:01)
[2020-01-15] MEDS: THIAMINE 100mg/ml INJ (200mg/2ml VIAL) IV SCH (09:36)
--- NOTE | 2020-01-15 09:36 | NUR ---
pain Patient c/o R knee pain, rates it 05/07. Will medicate per MD orders. Addendum: 01/15/20 at 1054 by Krupa Weems RN * 1004 Pain reassessment patient comfortably sleeping.
[2020-01-15] MEDS: Armodafinil (Nuvigil) 150 MG PO SCH (10:00)
[2020-01-15] MEDS: MUPIROCIN 2% OINT 15gm or 22gm EACHNOSTRI SCH ×2 (10:55→22:11)
--- NOTE | 2020-01-15 11:05 | NUR ---
Physical Therapy Patient working with PT.
[2020-01-15] MEDS: INSULIN LANTUS (GLARGINE) 1 /0.01ml (100units/ml) SC SCH (17:16)
--- NOTE | 2020-01-15 17:50 | NUR ---
PAIN Patient c/o right knee/foot pain, 05/07. Will medicate per MD orders. Addendum: 01/15/20 at 1837 by Krupa Weems RN pain reassessment Patient rates pain 11/07. patient is comfortable.
--- NOTE | 2020-01-15 19:00 | NUR ---
PT ASSESSED, NO SOB OR WHEEZING NOTED. PT AWAKE AND ALERT
--- NOTE | 2020-01-15 19:05 | NUR ---
Opening Shift Note Assumed care of patient, awake and alert. No S/S of distress/SOB or pain. Instructed on POC and to call for assist PRN, will continue to monitor for changes Q1hr and PRN. bed alarm on bed in low position and call light within reach.
--- NOTE | 2020-01-15 19:12 | NUR ---
Closing note Patient comfortably sleeping, patient on 2 L NC. No c/o pain. No s/s of distress/sob noted. Bed at lowest locked position and call light within reach. Care endorsed to Clara
--- NOTE | 2020-01-15 21:05 | NUR ---
patient refused SCD at this moment. patient educated on risks and benefits. patient verbalized understanding. patient requested to sleep.
--- NOTE | 2020-01-15 22:00 | NUR ---
report from mail handler equipment operator patient temperature is 99.8 temp recheck 99.2. denies sob distress or pain. cooling measures in place. will continue to monitor
[2020-01-16] VITALS (7 sets, daily range): BP systolic 104–126; BP diastolic 36–62
--- NOTE | 2020-01-16 01:57 | NUR ---
bed linen change done. barrier cream applied per md orders.
[2020-01-16 05:58] LABS: Basophils # (auto) 0.1 10 ^3/uL (0-0.2); Basophils % (auto) 0.7 % (0.0-2.0); Eosinophils # (auto) 0.1 10 ^3/uL (0-0.8); Eosinophils % (auto) 0.4 % (0.0-7.0); Hematocrit 40.5 % (41.0-53.0); Hemoglobin 13.3 g/dL (13.5-17.5); Lymphocytes # (auto) 1.1 10 ^3/uL (0.4-5.4); Lymphocytes % (auto) 6.8 % (10.0-50.0); Mean Corpuscular Hemoglobin 31.8 pg (28.0-32.0); Mean Corpuscular Hgb Conc. 32.9 g/dL (32.0-36.0); Mean Corpuscular Volume 96.8 fL (80.0-100.0); Monocytes # (auto) 1.2 10 ^3/uL (0-1.3); Monocytes % (auto) 7.5 % (0.0-12.0); Neutrophils # (auto) 13.1 10 ^3/uL (1.6-8.6); Neutrophils % (auto) 84.6 % (37.0-80.0); Platelet Count (auto) 383 10^3/uL (140-450); Red Blood Cells 4.19 10^6/uL (4.5-5.90); Red Cell Distribution Width 14.2 % (11.8-14.3); White Blood Cell 15.5 10^3/uL (4.4-10.8)
[2020-01-16] MEDS: CLINDAMYCIN 600MG IV 50 ML IV SCH (06:17)
[2020-01-16] MEDS: chlordiazePOXIDE HCL 5 MG CAP PO SCH ×2 (06:17→11:24)
[2020-01-16 06:20] LABS: BUN/Creatinine Ratio 21.9; Calcium 8.9 mg/dL (8.5-10.1); Potassium 4.3 mmol/L (3.5-5.1)
[2020-01-16] MEDS: ACCU-CHEK COMFORT CURVE STRIP VI SCH ×4 (06:20→21:44)
[2020-01-16] MEDS: InsuLIN REG 1unit/0.01ml Soln (100units/ml) SC SCH ×4 (06:25→21:44)
--- NOTE | 2020-01-16 06:53 | NUR ---
patient is in bed watching tv. no signs of sob distress or pain. bed in low position call light within reach fall precautions in place. iv is intact patent.
--- NOTE | 2020-01-16 07:30 | NUR ---
OPENING SHIFT NOTE ASSUMED CARE PATIENT FROM DIRECTOR EXPERIMENTAL MEDICINE RN PIPPA. PATIENT IS AWAKE AND ALERT X4. PATIENT HAS NO S/S OF DISTRESS/SOB OR PAIN. PATIENT WAS INCONTINENT OF URINE, PERICARE WAS DONE AND PARTIAL LINEN CHANGE, AND PATIENT WAS REPOSITIONED TO LEFT SIDE. INSTRUCTED PATIENT ON POC, PATIENT VERBALIZED UNDERSTANDING. BED IS IN LOWEST POSITION WITH SIDE RAILS RAISED X2, BED WHEELS LOCKED, AND CALL LIGHT IS WITHIN REACH. WILL CONTINUE TO MONITOR.
--- NOTE | 2020-01-16 07:38 | NUR ---
report given to dayshift rn patient denies sob ditress or pain.
--- NOTE | 2020-01-16 09:33 | NUR ---
PHYSICAL THERAPY AT BEDSIDE
--- NOTE | 2020-01-16 09:36 | NUR ---
Respiratory note: PT ASSESSED FOR PRN. PT AWAKE ALERT AND RESPONSIVE B/S ARE DIMINISHED. PT FOUND ON 2 LPM NC. SP02 95%. PT IS IN NO DISTRESS AT THIS TIME. NO TREATMENT INDICATED.
[2020-01-16] MEDS: ENALAPRIL MALEATE 10 MG TAB PO SCH (10:00)
[2020-01-16] MEDS: THIAMINE 100mg/ml INJ (200mg/2ml VIAL) IV SCH (10:00)
[2020-01-16] MEDS: Armodafinil (Nuvigil) 150 MG PO SCH (10:00)
[2020-01-16] MEDS: MUPIROCIN 2% OINT 15gm or 22gm EACHNOSTRI SCH ×2 (10:28→21:43)
[2020-01-16] MEDS: PANTOPRAZOLE 40 MG TAB PO SCH (10:29)
[2020-01-16] MEDS: ASPirin 81 mg TAB PO SCH (10:29)
[2020-01-16] MEDS: ENOXAPARIN SOD 40 MG/0.4 ML SYRINGE SC SCH (10:30)
[2020-01-16] MEDS: FUROSEMIDE 40 MG TAB PO SCH (10:33)
[2020-01-16] MEDS: levoFLOXacin 500MG 100 ML IV SCH (10:33)
[2020-01-16] MEDS: METOPROLOL TARTRATE 50 MG TAB PO SCH ×2 (10:33→21:43)
[2020-01-16] MEDS: MORPHINE SULF INJ 2 MG/ML SYRINGE 1ML IV PRN (11:05)
--- NOTE | 2020-01-16 11:05 | NUR ---
MD TONEY AT BEDSIDE UPDATED MD ON PATIENT'S STATUS, MD IS AWARE. MD ORDERED [facility] CONSULT FOR SNF PLACEMENT. WILL FOLLOW THROUGH WITH ORDERS.
[2020-01-16 13:48] LABS: Hepatitis A Ab IgM Negative; Hepatitis C Antibody Negative (Negative)
[2020-01-16] MEDS: CLINDAMYCIN HCL 150 MG CAP PO SCH ×2 (13:55→21:43)
[2020-01-16] MEDS ORDERED: THIAMINE HCL 100 MG TAB PO ONE (14:00)
[2020-01-16] MEDS ORDERED: ENALAPRIL MALEATE 10 MG TAB PO ONE (14:00)
[2020-01-16] MEDS ORDERED: THYROID 60 MG TAB PO ONE (14:00)
[2020-01-16] MEDS: NAPROXEN 500 MG TAB PO SCH ×2 (14:08→21:44)
--- NOTE | 2020-01-16 14:16 | NUR ---
assessment Patient is a 59 year old male who is alert and oriented. Patients cognitive abilities are intact. Prior to admission patient lived home with family and functioned with assistance. Per patient he has leg swelling and came to ER. Patient may need SNF post discharge. Patient has a fww, wheelchair, and 02 for home use. Patients mother Manuel drives and cooks for patient. I informed patient he has a right to speak to a social work coordinator regarding all care. I informed patient he has a right to participate in any and all discharge planning. Patient is aware of visiting hours on the hospital floor. I informed patient he has a right to privacy. Patient does not have a POA and advanced directive. I have offered patient information on POA and advanced directives. I informed the patient the advantages and benefits of having an Advanced Directive. Patient verbalized understanding and agreed to discharge plan. Addendum: 01/16/20 at 1418 by Demi REYES Amended: Links added.
--- NOTE | 2020-01-16 16:20 | NUR ---
D/C Planning Per SS consult for SNF placement. Faxed clinical information to [facility], [facility], [facility], [facility] and [facility]. [facility], [facility], [facility] and [facility] are unable to accommodate patient needs. Per Dinora Diaz Ph:) they can accept patient and she will assigned room when they obtain authorization. Faxed Clinical information to [facility] requesting authorization for [facility]. Pending authorization. Informed PARRIS Kuhn.
--- NOTE | 2020-01-16 16:23 | NUR ---
PATIENT'S TEMPERATURE IS 100.3 COOLING MEASURES APPLIED WILL REASSESS.
[2020-01-16] MEDS: INSULIN LANTUS (GLARGINE) 1 /0.01ml (100units/ml) SC SCH (18:23)
--- NOTE | 2020-01-16 19:03 | NUR ---
CLOSING SHIFT NOTE ENDORSED CARE TO QUALITY IMPROVEMENT ANALYST RN. PATIENT HAS NO S/S OF DISTRESS/SOB OR PAIN AT THIS TIME.
--- NOTE | 2020-01-16 19:30 | NUR ---
Opening Shift Note Received report from Hattie NYE. Assumed care of patient, awake and alert. No S/S of distress/SOB or pain. Instructed on POC and to call for assist PRN. Fall precaution measures in place, will continue to monitor for changes Q1hr and PRN.
--- NOTE | 2020-01-17 04:41 | NUR ---
RT NOTE: PT ASSESSED FOR PRN TX. B/S DIMINISHED. PT ON 2L NC. SP02 100%, HR 60. NO SOB OR DISTRESS NOTED. NO TX INDICATED.
[2020-01-17 05:15] VITALS: BP 131/74
[2020-01-17] MEDS: MORPHINE SULF INJ 2 MG/ML SYRINGE 1ML IV PRN ×2 (05:18→09:57)
--- NOTE | 2020-01-17 05:18 | NUR ---
Complains of RLE pain at 9/10, Morphine IV given, will continue to monitor.
[2020-01-17] MEDS: CLINDAMYCIN HCL 150 MG CAP PO SCH (06:27)
[2020-01-17] MEDS: ACCU-CHEK COMFORT CURVE STRIP VI SCH ×3 (06:27→17:00)
[2020-01-17] MEDS: NAPROXEN 500 MG TAB PO SCH (06:27)
[2020-01-17] MEDS: InsuLIN REG 1unit/0.01ml Soln (100units/ml) SC SCH ×3 (06:27→17:00)
--- NOTE | 2020-01-17 06:27 | NUR ---
Latest pain level is 7/10, scheduled naproxen given, continue care.
--- NOTE | 2020-01-17 08:00 | NUR ---
RECEIVED PATIENT ALERT AND ORIENTED X4, NOT IN DISTRESS, WHEEZING SOUNDS IN BILATERAL LUNG LOBES, RR=20, SAT=94%, DEEP BREATHING AND COUGHING WAS ENCOURAGED, DEMONSTRATED WELL, DENIED CHEST PAIN OR SOB, SR R=64 ON TELE MONITOR, ABDOMEN SOFT AND ROUND WITH ACTIVE BS, LAST BM=01/16/20 REPORTED, SKIN INTACT WARM TO TOUCH, RT. LEG EDEMA AND PAIN L=6/10 NOTED, PEDAL PULSE PALPABLE, CAP REFILL <3 SECONDS, ABLE TO WIGGLE TOES, HEAD OF BED ELEVATED, BED ON LOW POSITION, RAILS UP X2, CALL LIGHT ON REACH, PENDING SS CONSULT FOR SNF PLACEMENT, WILL CONTINUE MONITORING.
[2020-01-17 08:52] VITALS: BP 124/78
[2020-01-17] MEDS: Armodafinil (Nuvigil) 150 MG PO SCH (09:50)
[2020-01-17] MEDS: MUPIROCIN 2% OINT 15gm or 22gm EACHNOSTRI SCH (09:51)
[2020-01-17] MEDS: FUROSEMIDE 40 MG TAB PO SCH (09:53)
[2020-01-17] MEDS: PANTOPRAZOLE 40 MG TAB PO SCH (09:55)
[2020-01-17] MEDS: METOPROLOL TARTRATE 50 MG TAB PO SCH (09:55)
[2020-01-17] MEDS: ENOXAPARIN SOD 40 MG/0.4 ML SYRINGE SC SCH (09:56)
[2020-01-17] MEDS ORDERED: THIAMINE HCL 100 MG TAB PO SCH (10:00)
[2020-01-17] MEDS ORDERED: levoFLOXacin 500 MG TAB PO SCH (10:00)
[2020-01-17] MEDS ORDERED: THYROID 60 MG TAB PO SCH (10:00)
[2020-01-17] MEDS ORDERED: ENALAPRIL MALEATE 10 MG TAB PO SCH (10:00)
[2020-01-17 10:02] LABS: Hepatitis B Surface Antigen Negative (Negative)
[2020-01-17 10:11] LABS: Hepatitis B Core IgM Negative
[2020-01-17 10:29] LABS: Basophils # (auto) 0.1 10 ^3/uL (0-0.2); Eosinophils # (auto) 0.1 10 ^3/uL (0-0.8); Neutrophils # (auto) 11.8 10 ^3/uL (1.6-8.6)
[2020-01-17 10:31] LABS: Basophils % (auto) 0.6 % (0.0-2.0); Hematocrit 42.3 % (41.0-53.0); Hemoglobin 13.5 g/dL (13.5-17.5); Lymphocytes # (auto) 1.3 10 ^3/uL (0.4-5.4); Lymphocytes % (auto) 8.7 % (10.0-50.0); Mean Corpuscular Hemoglobin 31.3 pg (28.0-32.0); Mean Corpuscular Hgb Conc. 31.9 g/dL (32.0-36.0); Monocytes # (auto) 1.1 10 ^3/uL (0-1.3); Monocytes % (auto) 7.8 % (0.0-12.0); Neutrophils % (auto) 81.9 % (37.0-80.0); Platelet Count (auto) 451 10^3/uL (140-450); Red Blood Cells 4.32 10^6/uL (4.5-5.90); Red Cell Distribution Width 14.6 % (11.8-14.3); White Blood Cell 14.4 10^3/uL (4.4-10.8)
[2020-01-17 10:50] LABS: Calcium 9.1 mg/dL (8.5-10.1); Potassium 4.5 mmol/L (3.5-5.1)
[2020-01-17] MEDS ORDERED: FLORASTOR (S. BOULARDII) 250 MG CAP PO ONE (11:38)
[2020-01-17] MEDS ORDERED: ALBUTEROL SULF 2.5 MG/0.5ML(0.5%) NEB SOLN NEB PRN (11:45)
[2020-01-17] MEDS ORDERED: COLCHICINE 0.6 MG CAP PO ONE (11:45)
[2020-01-17] MEDS ORDERED: IPRATROPIUM BROM 0.5 MG/2.5ML INH SOL NEB PRN (11:45)
[2020-01-17] MEDS ORDERED: NAP500T PO (12:29)
[2020-01-17] MEDS ORDERED: CLIN300C8 PO (12:29)
[2020-01-17] MEDS ORDERED: SACC250C PO (12:29)
[2020-01-17] MEDS ORDERED: MET50T PO (12:29)
[2020-01-17] MEDS ORDERED: COLC1TAB3 PO (12:29)
[2020-01-17] MEDS ORDERED: LEVO500T21 PO (12:29)
[2020-01-17 12:50] VITALS: BP 101/57
--- NOTE | 2020-01-17 13:00 | NUR ---
RESTING ON BED, NOT IN DISTRESS, PENDING D/C TO SNF, SS CONTACTED FOR PENDING D/C PROCESS UPDATES, D/C ARRANGEMENT IS IN PROCESS REPORTED BY SS, WILL CONTINUE MONITORING.
[2020-01-17] MEDS ORDERED: NAPROXEN 500 MG TAB PO SCH (14:00)
[2020-01-17] MEDS ORDERED: CLINDAMYCIN HCL 150 MG CAP PO SCH (14:00)
--- NOTE | 2020-01-17 16:04 | NUR ---
D/C Planning Spoke to Patient via phone advising him [facility] in [place] accepted him. Explain to patient [facility], [facility], [facility] and [place] [facility] are unable to accommodate his needs. Patient verbalize understanding and agrees to go to [facility]. Received a call from Divina with [facility] providing me with authorization for [facility] [id number] and for transportation is [phone]. Placed a follow up called to Dinora with [facility] ) providing her with the authorization. Per Dinora patient will be going to room [address] Garza. Faxed transportation form to [facility] requesting for transportation to be arrange at 17:00 via gurney and oxygen. Placed followed up called to [facility] Ph:( [phone]) at 16:00 spoke to Sonia. Per Sonia transportation ETA is pending and they will follow up with me once they arrange transportation. Received a followed up called from Niurka with [facility] at 16:15 advising me transportation has been arranged with [employer] Ph:( [phone]). Per Niurka the only availability [employer] [facility] has is for 20:00 via gurney with oxygen. PARRIS Chan was informed of d/c plan to [facility]
--- NOTE | 2020-01-17 16:26 | NUR ---
D/C TO [facility] ARRANGEMENT WAS PROCESSED BY SS, PENDING TRANSPORTATION, ECG TECHNICIAN TIME 20:00 REPORTED BY SS, WILL CONTINUE MONITORING.
[2020-01-17 16:29] VITALS: BP 101/57
[2020-01-17 16:52] VITALS: BP 120/66
--- NOTE | 2020-01-17 17:15 | NUR ---
AT 20:00 WILL BE TRANSFERRED TO [facility], [address], [facility] [id number], REPORTED BY SS, REPORT WAS GIVEN TO THE ACCEPTING NURSE GERARDO ON [phone], REPORT WAS REPEATED AND CLARIFIED, ACCEPTING NURSE CARRILLO VERBALIZED UNDERSTANDING, FOR CONTINUATION OF MEDICAL CARE WILL FOLLOW UP WITH ACCEPTING MD CARLISLE, WILL CONTINUE MONITORING.
[2020-01-17] MEDS: INSULIN LANTUS (GLARGINE) 1 /0.01ml (100units/ml) SC SCH (18:00)
--- NOTE | 2020-01-17 19:29 | NUR ---
NOT IN DISTRESS, RESTING ON BED, PENDING, REPORT WAS GIVEN TO THE INFORMATICS SPEC RN, D/C PAPERS COMPLETED AND HANDED TO THE INFORMATICS SPEC RN.
--- NOTE | 2020-01-17 20:02 | NUR ---
Discharge instructions given as ordered. All questions and concerns addressed. Patient verbalized understanding. IV removed with catheter intact, pressure dressing applied. Medication reconciliation form completed and copy given to patient. Telemetry unit returned to ICU. Report given by dayshift RN. Patient transported by ambulance with all personal belongings. No distress noted at time of departure.
[2020-01-18] MEDS ORDERED: ARMODAFINIL 150 MG TAB PO SCH (08:00)
[2020-01-18] MEDS ORDERED: COLCHICINE 0.6 MG CAP PO SCH (10:00)
[2020-01-18] MEDS ORDERED: FLORASTOR (S. BOULARDII) 250 MG CAP PO SCH (10:00)
[2020-01-18] MEDS ORDERED: levoFLOXacin 500 MG TAB PO SCH (10:00)
== END 2020-01-17 20:02 | DRG 720 ==
LOC: EDBD 09:46 → ER 09:46 → TELE 09:47 → TELE-WESTW 15:58
PROVIDERS: ADMIT Internal Medicine; ATTEND Internal Medicine
DX: A41.9 Sepsis, unspecified organism (principal); N17.0 Acute kidney failure with tubular necrosis; J81.1 Chronic pulmonary edema; J90 Pleural effusion, not elsewhere classified; I27.81 Cor pulmonale (chronic); E66.01 Morbid (severe) obesity due to excess calories; E87.1 Hypo-osmolality and hyponatremia; E11.22 Type 2 diabetes mellitus with diabetic chronic kidney disease; I50.32 Chronic diastolic (congestive) heart failure; I13.0 Hypertensive heart and chronic kidney disease with heart failure and stage 1 through stage 4 chronic kidney disease, or unspecified chronic kidney disease; L03.115 Cellulitis of right lower limb; J44.9 Chronic obstructive pulmonary disease, unspecified; K21.9 Gastro-esophageal reflux disease without esophagitis; K76.0 Fatty (change of) liver, not elsewhere classified; F10.10 Alcohol abuse, uncomplicated; M25.461 Effusion, right knee; R06.89 Other abnormalities of breathing; N18.9 Chronic kidney disease, unspecified; E03.9 Hypothyroidism, unspecified; A49.02 Methicillin resistant Staphylococcus aureus infection, unspecified site; M10.9 Gout, unspecified; F32.9 Major depressive disorder, single episode, unspecified; M25.561 Pain in right knee; Z68.37 Body mass index [BMI] 37.0-37.9, adult; Z80.0 Family history of malignant neoplasm of digestive organs
CPT/HCPCS: 36415; 71045; 71275; 73562; 73700; 80048; 80053; 80074; 80307; 81001; 82550; 82728; 82962; 83036; 83605; 83615; 83735; 83880; 84443; 84484; 84550; 85025; 85379; 85610; 85652; 85730; 87040; 87081; 87205; 89051; 93970; 96365; 97110; 97163; 97530; G0378; J1815; J1956; J2543; J3490